=== PATIENT | male | born 1935 | race Caucasian/White ===

== ENCOUNTER 2017-03-02 15:45 | Outpatient (CLI) | payer MEDICARE, OTHER | END 2017-03-02 15:46 | disposition EMS.NT | LOC: EMS 15:45 | PROVIDERS: ATTEND Surgery | DX: R53.1 Weakness (principal); W18.39XA Other fall on same level, initial encounter; Y92.009 Unspecified place in unspecified non-institutional (private) residence as the place of occurrence of the external cause ==

== ENCOUNTER 2017-03-02 18:54 | Outpatient (CLI) | payer MEDICARE, OTHER | END 2017-03-02 18:55 | disposition critical access hospital (66) | LOC: EMS 18:54 | PROVIDERS: ATTEND Surgery | DX: R52 Pain, unspecified (principal); S09.93XA Unspecified injury of face, initial encounter; R11.0 Nausea; W18.12XA Fall from or off toilet with subsequent striking against object, initial encounter; Y92.002 Bathroom of unspecified non-institutional (private) residence as the place of occurrence of the external cause | CPT/HCPCS: A0425; A0429 ==

== ENCOUNTER 2017-03-02 19:08 | Inpatient (IN) | payer MEDICARE, OTHER ==
[2017-03-02 20:21] LABS: BASOPHILS # (AUTO) 0.1 10^3/uL (0.0-0.1); BASOPHILS % (AUTO) 0.4 %; EOSINOPHILS # (AUTO) 0.1 10^3/uL (0.0-0.7); EOSINOPHILS % (AUTO) 0.7 %; HGB - HEMOGLOBIN 10.1 g/dL (14.0-18.0); LYMPHOCYTES # (AUTO) 0.9 10^3/uL (1.5-3.5); LYMPHOCYTES % (AUTO) 6.7 %; MEAN CORPUSCULAR HEMOGLOBIN 24.8 pg (27.0-31.0); MEAN CORPUSCULAR HGB CONC 30.9 g/dL (32.0-36.0); MEAN CORPUSCULAR VOLUME 80.4 fL (80.0-94.0); MEAN PLATELET VOLUME 8.5 fL (7.4-11.4); MONOCYTES # (AUTO) 1.4 10^3/uL (0.0-1.0); MONOCYTES % (AUTO) 10.2 %; NEUTROPHILS # (AUTO) 11.6 10^3/uL (1.5-6.6); PLT - PLATELET COUNT 307 10^3/uL (130-450); RED BLOOD COUNT 4.09 10^6/uL (4.70-6.10); RED CELL DISTRIBUTION WIDTH 17.3 % (12.0-15.0); WHITE BLOOD COUNT 14.1 x10^3/uL (4.8-10.8)
[2017-03-02 20:39] LABS: ALBUMIN 3.5 g/dL (3.2-5.5); ALBUMIN/GLOBULIN RATIO 0.9 (1.0-2.2); BILIRUBIN,TOTAL 1.3 mg/dL (0.2-1.0); CALCIUM 9.1 mg/dL (8.5-10.3); CREATININE 3.1 mg/dL (0.6-1.2); TOTAL PROTEIN 7.5 g/dL (6.7-8.2)
[2017-03-02] MEDS ORDERED: ALBUTEROL NEB 2.5 MG/3 ML INH STA (20:41)
[2017-03-02] MEDS ORDERED: CALCIUM GLUCONATE 1000 MG/10 ML VIAL IVP STA (20:41)
--- NOTE | 2017-03-02 22:01 | ED Physician Documentation ---
History of Present Illness - Stated complaint Stated Complaint: GLF - INCREASINS WEAKNESS - Chief complaint Chief Complaint: General - History obtained from History obtained from: Patient, Family - History of Present Illness Timing: Chronic - Additonal information Additional information: Patient is an 82 year old male with diastolic heart failure, diffuse edema, acute on chronic kidney disease who is presenting to the emergency department for generalized weakness and fall. According to family, patient and previous notes patient was recently admitted for worsening kidney disease and anisarca, patient had been sent to rehab in [place] but patient signed himself out against medical advice. The states that today he was going to the bathroom and when he tried to get up he fell forward hitting his head. his states that he can barely walk and she cannot take care of him at home. Review of Systems Constitutional: denies: Fever, Chills Eyes: reports: Reviewed and negative Ears: reports: Reviewed and negative Nose: reports: Reviewed and negative Throat: reports: Reviewed and negative Cardiac: reports: Pedal edema Respiratory: reports: Dyspnea. denies: Wheezing GI: denies: Nausea, Vomiting : reports: Other (scrotal swelling) Skin: reports: Rash, Lesions Musculoskeletal: reports: Extremity swelling, Joint swelling Neurologic: reports: Generalized weakness, Head injury. denies: Focal weakness , Numbness, Difficulty speaking Psychiatric: denies: Depressed, Suicidal Immunocompromised: denies: Immunocompromised PD PAST MEDICAL HISTORY - Past Medical History Cardiovascular: Congestive heart failure, Hypertension, Coronary artery disease , Atrial fibrillation Respiratory: None Neuro: Peripheral neuropathy Endocrine/Autoimmune: Type 2 diabetes GI: GERD : Nocturia, Frequency, Other Psych: Depression Musculoskeletal: Osteoarthritis, Other Derm: Other - Past Surgical History Past Surgical History: Yes Cardiovascular: CABG, Coronary stent - Present Medications Home Medications: Ambulatory Orders Medication Instructions Recorded Confirmed Omeprazole 20 mg PO QDAC 11/01/14 03/02/17 Aspirin [Aspir-Low] 81 mg PO DAILY 06/19/15 03/02/17 Fluoxetine HCl 40 mg PO DAILY #0 03/01/17 03/02/17 Insulin Glargine [Lantus Solostar] 50 units SUBQ QPM #0 03/01/17 03/01/17 Isosorbide Mononitrate [Isosorbide 1 tab PO DAILY 03/01/17 03/02/17 Mononitrate ER] Metoprolol Succinate [Toprol Xl] 50 mg PO DAILY 03/01/17 03/02/17 Spironolactone 25 mg PO BID #30 tablet 03/01/17 03/02/17 Torsemide 20 mg PO BID 03/01/17 03/02/17 hydrALAZINE [Apresoline] 25 mg PO TID #0 03/01/17 03/02/17 metFORMIN [Glucophage] 500 mg PO ONCE 03/01/17 03/02/17 Insulin Glargine [Lantus Solostar] 75 unit SUBQ QPM 03/02/17 03/02/17 - Allergies Allergies/Adverse Reactions: Allergies Allergy/AdvReac Type Severity Reaction Status Date / Time No Known Drug Allergies Allergy Verified 03/02/17 19:15 - Social History Does the pt smoke?: No Smoking Status: Never smoker Does the pt drink ETOH?: Yes Does the pt have substance abuse?: No - Immunizations Immunizations are current?: Yes - POLST Patient has POLST: No POLST Status: DNR PD ED PE NORMAL - Neuro Neuro: Alert and oriented X 3, No motor deficit, No sensory deficit, Normal speech Eye Opening: Spontaneous Motor: Obeys Commands Verbal: Oriented GCS Score: 15 PD ED PE EXPANDED - General General: Other (diffuse anasarca) - HEENT HEENT: Head injury (minimal dried blood around patient's mouth) - Cardiac Cardiac: Irregularly irregular - Abdomen Abdomen: Other (plus 3 pitting edema) - Derm Derm: Rash (erythema of bilateral lower extremities) - Extremities Extremities: Pedal edema bilateral Results - Vitals Vitals: Vital Signs - 24 hr 03/02/17 03/02/17 03/02/17 19:10 20:30 21:32 Temperature 36.1 C L Heart Rate 60 65 68 Respiratory 18 20 22 Rate Blood Pressure 157/68 H 128/81 H O2 Saturation 94 94 Oxygen O2 Source [Without Activity] Nasal cannula O2 Source [With Activity] Room air O2 Source Nasal cannula Oxygen Flow Rate 2 - EKG (time done) 1915 Rate: Rate (enter#) (63) Rhythm: Atrial fibrillation Seymour: Normal Intervals: Normal WA QRS: Normal Ischemia: Normal ST segments Compare to prior EKG: Unchanged from prior EKG - Labs Labs: Laboratory Tests 03/02/17 03/02/17 03/02/17 20:12 20:12 20:12 WBC 14.1 H RBC 4.09 L Hgb 10.1 L Hct 32.9 L MCV 80.4 MCH 24.8 L MCHC 30.9 L RDW 17.3 H Plt Count 307 MPV 8.5 Neut # 11.6 H Lymph # 0.9 L Candler # 1.4 H Eos # 0.1 Baso # 0.1 Absolute Nucleated RBC 0.01 Nucleated RBC % 0.0 Sodium 127 L Potassium 5.3 H Chloride 90 L Carbon Dioxide 19 L Anion Gap 18.0 H BUN 66 H Creatinine 3.1 H Estimated GFR (MDRD) 19 L Glucose 220 H Calcium 9.1 Magnesium 1.7 Total Bilirubin 1.3 H AST 34 ALT 18 Alkaline Phosphatase 103 Total Protein 7.5 Albumin 3.5 Globulin 4.0 Albumin/Globulin Ratio 0.9 L Lipase 14 L - Rads (name of study) ct head Radiology: Final report received (no acute abnormality) PD MEDICAL DECISION MAKING - ED course Complexity details: reviewed old records, reviewed results, re-evaluated patient , considered differential, d/w patient, d/w family, d/w retail wireless sales consultant ED course: Patient was seen and examined at bedside. labs were drawn and imaging was ordered. When patient's labs came back he was found to be hyperkalemic but no ekg changes. patient was treated with calcium and albuterol. Patient's head CT showed no acute changed but patient had multiple lab abnormalities. Patient required observation for correction of elecctrolyte abnormalities and further care. Case was discussed with hospitalist who agreed to observation. Departure - Departure Disposition: ED Place in Observation Clinical Impression: Anasarca, Acute on chronic right heart failure, Acute on chronic renal insufficiency, Hyperkalemia Condition: Stable Discharge Date/Time: 03/02/17 23:02
--- NOTE | 2017-03-02 22:09 | CT Preliminary Report ---
Exam: CT HEAD W/O IMPRESSION: Generalized age-related cortical atrophic changes without evidence of acute intracranial abnormality. [facility] SITE ID: [id number]
--- NOTE | 2017-03-02 22:20 | CT Report ---
EXAM: CT HEAD EXAM DATE: 03/02/2017 09:02 PM. CLINICAL HISTORY: Facial pain, fall. COMPARISON: Brain CT from 02/26/2017. TECHNIQUE: Multiaxial CT images were obtained from the foramen magnum to the vertex. Reformats: Coron al. IV contrast: None. In accordance with CT protocol optimization, one or more of the following dose reduction techniques w ere utilized for this exam: automated exposure control, adjustment of mA and/or KV based on patient s ize, or use of iterative reconstructive technique. FINDINGS: Parenchyma: No intraparenchymal hemorrhage. No evidence of mass, midline shift, or CT findings of acu te infarction. Nixon-white differentiation is distinct. No diffuse chronic microangiopathic white miguel er changes are evident. Extraaxial Spaces: Normal for age. No subdural or epidural collections identified. Ventricles: The ventricles and cortical sulci are moderately enlarged, consistent with age-related ti ssue loss. Sinuses and orbits: Postsurgical changes from cataract extractions are noted in the globes. The paran sara and mastoid sinuses are nonopacified. Bones: No evidence of fracture or calvarial defect. Other: Mild intracranial atherosclerosis is noted. IMPRESSION: Generalized age-related cortical atrophic changes without evidence of acute intracranial abnormality. [facility] Referring Provider Line: [phone] SITE ID: [id number]
[2017-03-02] MEDS ORDERED: ZOLPIDEM 5 MG TABLET PO PRN (22:30)
[2017-03-02 22:49] LABS: BILIRUBIN,URINE NEGATIVE (NEGATIVE); GLUCOSE, URINE (UA) NEGATIVE (NEGATIVE); KETONES,URINE (UA) NEGATIVE (NEGATIVE); LEUKOCYTE ESTERASE, URINE MODERATE (NEGATIVE); NITRITE,URINE POSITIVE (NEGATIVE); OCCULT BLOOD,URINE MODERATE (NEGATIVE); PROTEIN,URINE 100 mg/dL (NEGATIVE); UROBILINOGEN,URINE 0.2 (NORMAL) E.U./dL (NORMAL)
[2017-03-02 22:58] LABS: BACTERIA,URINE Moderate /HPF (None Seen); CLARITY,URINE CLOUDY (CLEAR); RBC,URINE TNTC /HPF (0-5); SQUAMOUS EPITHELIAL CELL,UR FEW Squamous (<= Few)
[2017-03-02] MEDS ORDERED: metFORMIN 500 MG TABLET PO SCH (23:00)
[2017-03-03] MEDS ORDERED: INSULIN GLARGINE 300 UNIT/3 ML PEN SUBQ ONE (00:45)
[2017-03-03] MEDS: TEMAZEPAM 7.5 MG CAPSULE PO PRN ×2 (00:54→20:35)
[2017-03-03] MEDS: SODIUM CHLORIDE FLUSH 0.9% 10 ML SYRINGE IVP PRN ×2 (03:54→22:32)
[2017-03-03] MEDS ORDERED: LORazepam 2 MG/ML VIAL IVP SCH (04:00)
[2017-03-03 07:40] LABS: CALCIUM 8.9 mg/dL (8.5-10.3); CREATININE 3.3 mg/dL (0.6-1.2); MAGNESIUM 1.6 mg/dL (1.7-2.8)
[2017-03-03] MEDS: hydrALAZINE 25 MG TABLET PO SCH ×2 (07:48→13:20)
[2017-03-03] MEDS: SODIUM CHLORIDE FLUSH 0.9% 10 ML SYRINGE IVP SCH ×3 (07:48→22:18)
[2017-03-03] MEDS ORDERED: FLUoxetine 10 MG CAPSULE PO SCH (09:00)
[2017-03-03] MEDS ORDERED: METOPROLOL SUCCINATE 50 MG TABLET PO SCH ×2 (09:00)
[2017-03-03] MEDS ORDERED: FAMOTIDINE 20 MG TABLET PO SCH (09:00)
--- NOTE | 2017-03-03 09:01 | CT Report ---
DATE OF SERVICE: 03/02/2017 CT FACIAL BONES WITHOUT CONTRAST: 03/02/2017 CLINICAL INDICATION: Fall TECHNIQUE: Axial CT images of the facial bones were obtained without contrast, following which, sagittal and coronal reconstructions were performed. In accordance with CT protocol optimization, one or more of the following dose reduction techniques were utilized for this exam: Automated exposure control, adjustment of mA and/or KV based on patient size, or use of iterative reconstructive technique. FINDINGS: Image quality is degraded by patient motion. There is no evidence of displaced fracture. The visualized orbital contents are unremarkable. The paranasal sinuses are clear. The ostiomeatal units are patent. There are degenerative changes in the temporomandibular joints, left worse than right. IMPRESSION: No evidence of facial bone fracture. TD: 03/03/2017 10:00
[2017-03-03] MEDS: ASPIRIN EC 81 MG TABLET PO SCH (09:02)
[2017-03-03] MEDS: POLYETHYLENE GLYCOL 3350 17 GM PACKET PO SCH (09:04)
[2017-03-03] MEDS: SPIRONOLACTONE 25 MG TABLET PO SCH ×2 (09:04→20:35)
[2017-03-03] MEDS: TORSEMIDE 20 MG TABLET PO SCH ×2 (09:04→20:39)
[2017-03-03] MEDS ORDERED: CETIRIZINE 10 MG TABLET PO PRN (10:47)
[2017-03-03] MEDS: NITROFURANTOIN MACRO 100 MG CAPSULE PO SCH ×2 (12:10→20:35)
--- NOTE | 2017-03-03 19:05 | PROVIDER PROGRESS NOTE ---
Subjective - Prog Note Date Prog Note Date: 03/03/17 Prog Note Time: 19:03 - Subjective Pt reports feeling: No change (Pt continues to have analtered mental status) Objective - Vital Signs/Intake & Output Reviewed Vital Signs: Yes - Objective General Appearance: positive: Mild distress, Lethargic Eyes Bilateral: positive: Normal inspection, EOMI, No lid inflammation, Conjunctivae nml ENT: positive: ENT inspection nml, Pharynx nml, No signs of dehydration Neck: positive: Nml inspection, Thyroid nml, No JVD, Trachea midline. negative : Thyromegaly Respiratory: positive: Chest non-tender, No respiratory distress, Breath sounds nml. negative: Wheezes, Rales, Rhonchi Cardiovascular: positive: Regular rate & rhythm, No murmur, No gallop Abdomen: positive: Non-tender, No organomegaly, Nml bowel sounds, No distention. negative: Guarding, Rebound Back: positive: Nml inspection. negative: CVA tenderness (R), CVA tenderness (L ) Skin: positive: Color nml, No rash, Warm, Dry. negative: Cyanosis Extremities: positive: Non-tender, Full ROM, Nml appearance Neurologic/Psychiatric: positive: Disoriented to person, Disoriented to place, Disoriented to time. negative: Facial droop, Slurred/abnml speech - Lab Results Fish Bones: 03/02/17 20:12 03/03/17 07:25 Assessment/Plan - Problem List (1) Acute on chronic right heart failure Impression: The patient is in a difficult position as he is fluid overloaded with a BNP of 1569 today yet also has acute on chronic renal insufficiency with a creatinine of 3.3. We have no choice but to try to remove the fluid gently with as little damage to his kidneys as can be managed, and may need to consider dialysis as another alternative for diuresis as well. Will reassess in the morning when the new labs come out. I had a lengthy conversation with the patient's who agrees with this plan. (2) Acute on chronic renal insufficiency Impression: As noted above, we will try to diurese the patient as gently as possible. (3) Diabetes Impression: Continue with the current medication regimen. (4) Hyponatremia Impression: We will try to correct with fluid restriction. Will monitor daily.
[2017-03-03] MEDS ORDERED: ZINC OXIDE 20% OINT 28.35 GM TUBE TOP ONE (19:20)
[2017-03-03] MEDS: ZINC OXIDE 20% OINT 28.35 GM TUBE TOP PRN (20:03)
[2017-03-03] MEDS: INSULIN ASPART 300 UNIT/3 ML PEN SUBQ SCH (20:35)
[2017-03-03] MEDS ORDERED: INSULIN ASPART 300 UNIT/3 ML PEN SUBQ ONE (20:35)
[2017-03-03 20:47] LABS: HB2 TOTAL 10.9 g/dL; HEMOGLOBIN A1C 0.83 g/dL; HEMOGLOBIN A1C % 9.1 % (4.6-6.2)
[2017-03-03] MEDS ORDERED: INSULIN GLARGINE 300 UNIT/3 ML PEN SUBQ SCH ×3 (21:00)
[2017-03-03] MEDS ORDERED: MORPHINE 2 MG/ML SYRINGE IVP PRN (22:10)
[2017-03-03] MEDS ORDERED: hydrALAZINE 25 MG TABLET PO SCH (22:11)
[2017-03-03] MEDS: BUMETANIDE 1 MG/4 ML VIAL IVP SCH (22:30)
--- NOTE | 2017-03-03 23:24 | XRAY Report ---
EXAM: CHEST RADIOGRAPHY EXAM DATE: 03/03/2017 10:24 PM. CLINICAL HISTORY: Shortness of breath COMPARISON: 02/25/2017, 02/21/2017 TECHNIQUE: 1 view. FINDINGS: Lungs/Pleura: Small lung volumes. Diffuse pulmonary vascular congestion and septal thickening. Suspec maranda trace pleural effusions. No definite pneumothorax. Mediastinum: Moderate enlargement of the cardiac silhouette. Other: Prior median sternotomy. IMPRESSION: Moderate CHF pattern. [facility] Referring Provider Line: [phone] SITE ID: [id number]
[2017-03-04] MEDS: OLANZapine 10 MG VIAL IM PRN ×2 (00:28→17:45)
[2017-03-04 05:47] LABS: VBG PCO2 31.2 mmHg (41-51); VBG PH 7.399 (7.31-7.41); VBG PO2 218.9 mmHg (25-47); VBG TOTAL CO2 19.8 mmol/L (24-29)
[2017-03-04 05:48] LABS: BASOPHILS % (AUTO) 0.2 %; EOSINOPHILS % (AUTO) 0.4 %; HGB - HEMOGLOBIN 10.6 g/dL (14.0-18.0); LYMPHOCYTES % (AUTO) 5.1 %; MEAN CORPUSCULAR HGB CONC 31.1 g/dL (32.0-36.0); MEAN CORPUSCULAR VOLUME 80.3 fL (80.0-94.0); MEAN PLATELET VOLUME 8.9 fL (7.4-11.4); MONOCYTES % (AUTO) 6.1 %; NEUTROPHILS % (AUTO) 88.2 %; PLT - PLATELET COUNT 263 10^3/uL (130-450); RED BLOOD COUNT 4.25 10^6/uL (4.70-6.10); RED CELL DISTRIBUTION WIDTH 17.6 % (12.0-15.0); WHITE BLOOD COUNT 29.5 x10^3/uL (4.8-10.8)
[2017-03-04 05:58] LABS: ABNORMAL LYMPHS % (MANUAL) 0 %
[2017-03-04 06:01] LABS: CALCIUM 9.1 mg/dL (8.5-10.3); CREATININE 3.7 mg/dL (0.6-1.2)
[2017-03-04] MEDS: PANTOPRAZOLE 40 MG TABLET PO SCH (06:05)
[2017-03-04 06:15] LABS: BAND NEUTROPHILS % (MANUAL) 10 %; DIFFERENTIAL COMMENT MANUAL DIFFERENTIAL; LYMPHOCYTES % (MANUAL) 10 %; MONOCYTES # (MANUAL) 2.7 10^3/uL (0.0-1.0); NEUTROPHILS # (MANUAL) 23.9 10^3/uL (1.5-6.6); NEUTROPHILS % (MANUAL) 71 %; PLATELET ESTIMATE, MANUAL NORMAL (130-450,000) (NORMAL); RBC MORPHOLOGY (MULTIPLE) NORMAL APPEARANCE (NORMAL)
[2017-03-04] MEDS: SODIUM CHLORIDE FLUSH 0.9% 10 ML SYRINGE IVP SCH ×3 (07:18→21:46)
[2017-03-04] MEDS: INSULIN ASPART 300 UNIT/3 ML PEN SUBQ SCH ×3 (07:57→18:26)
[2017-03-04] MEDS: POLYETHYLENE GLYCOL 3350 17 GM PACKET PO SCH (07:59)
[2017-03-04] MEDS: ASPIRIN EC 81 MG TABLET PO SCH (08:59)
[2017-03-04] MEDS: FLUoxetine 10 MG CAPSULE PO SCH (08:59)
[2017-03-04] MEDS ORDERED: METOPROLOL SUCCINATE 25 MG TABLET PO SCH (09:00)
[2017-03-04] MEDS: levoFLOXacin 750 MG/150 ML 750 MG/150 ML BAG IV SCH (09:14)
[2017-03-04] MEDS: BUMETANIDE 1 MG/4 ML VIAL IVP SCH ×2 (09:15→22:05)
[2017-03-04] MEDS: SPIRONOLACTONE 25 MG TABLET PO SCH ×2 (09:20→21:45)
--- NOTE | 2017-03-04 09:56 | HISTORY & PHYSICAL EXAMINATION ---
DATE OF SERVICE: 03/02/2017 Physician: Tri Rueda MD DATE OF ADMISSION: 03/02/2017 HISTORY OF PRESENT ILLNESS: This is an 81-year-old, white male who was just discharged from here 24 hours previously for weakness, anasarca, and renal insufficiency. He was wanting to have home health therapy for conditioning and strengthening with physical therapy, but this could not be arranged and he did agree to go to a senior living facility, where he stayed less than 24 hours, and signed himself out against medical advice and went home. At home, he had weakness and was unable to care for himself. He lives with his elderly , who is also unable to care for him. He, therefore, presented to the emergency room. The other complaint was that he had fell at home twice from weakness and stumbling. He denied any syncope or dizziness or head trauma. He did fall on his lips and anterior face both times. MEDICATIONS At the time of this admission were as adjusted from recent hospitalization and discharge: 1. Torsemide 40 mg p.o. b.i.d. 2. Spironolactone 25 mg p.o. b.i.d. 3. Omeprazole 20 mg daily. 4. Metoprolol succinate 25 mg daily. 5. Lantus 75 units subcutaneously daily in the p.m. probably. 6. Hydralazine 25 mg p.o. t.i.d. 7. Fluoxetine 20 mg p.o. daily. 8. Cetirizine 10 mg p.o. daily. 9. Aspirin 81 mg p.o. daily. Of note was that the patient was no longer getting medications such as Neurontin , Gabapentin or Ambien which were creating excessive somnolence. ALLERGIES: NONE. PAST MEDICAL HISTORY: Anasarca with chronic right-sided heart failure, history of bypass surgery with CABG, permanent atrial fibrillation, diabetes, hypertension, COPD, spinal stenosis, obesity, GERD, and recent admission for anasarca and shortness of breath. FAMILY HISTORY: No inherited diseases. SOCIAL HISTORY: 1. With patient normally living at home with his and she is his caregiver, and he himself is independent when he has the strength, but he was recently here and transferred to senior living facility for physical therapy and strengthening, but signed himself out AMA. 2. Ex-smoker, no tobacco use now. 3. Drinks no alcohol, none for 32 years. REVIEW OF SYSTEMS: A comprehensive review of systems was performed and only the positives are described as above. PHYSICAL EXAMINATION GENERAL: White male, who is in mild distress, trying to urinate and having difficulty because of anasarca, but he is not in respiratory distress. VITAL SIGNS: Blood pressure 150/80, heart rate 50, in atrial fibrillation, afebrile, respiratory rate 22, oxygen saturation 100 percent on 2 liters nasal cannula. HEENT: Unremarkable with moist oral mucosa. NECK: Shows no JVD at a semi-recumbent angle of the body. No carotid bruits. CHEST: Diffusely diminished breath sounds, but no wheezes or rales. HEART: Heart sounds are distant. No audible murmurs. ABDOMEN: Obese. I cannot rule out ascites or organomegaly. EXTREMITIES: Show 4+ edema to the thighs, including scrotal edema. NEUROLOGIC: Intact. LABORATORY DATA: Sodium 127 and at discharge it was 134; BUN is 66 and creatinine 3.1, and at discharge his BUN was 61, creatinine 2.7; glucose 200, magnesium 1.7. BNP was not done, but at discharge was 1057. White count 14.1, hemoglobin 10 which is stable for him, platelet count normal. INR 1.3. IMAGING: CT of the head was performed, which showed no acute problem and the bones were described as no fractures, but this was only the cranium being reported on. ELECTROCARDIOGRAM: Probable atrial fibrillation and poor R-wave progression. IMPRESSION 1. Weakness with 2 falls. 2. Anasarca with difficulty passing urine. A recent Mccarthy had been used, but he does not want this now. 3. Chronic atrial fibrillation with good rate control. 4. Diabetes, on insulin. 5. Acute on chronic renal insufficiency. PLAN: Place the patient in observation to adjust medications further, plus also to determine the best location for him to receive physical therapy or home health/home nursing since the cannot be a caregiver because of her own frailty. Obtain orthostatic vital signs to determine if this is why he is falling or feeling weak. Continue with his current doses of his beta jensen, loop diuretic, and spironolactone. No increases are ordered, as he currently continues to need diuresis from the anasarca, but has worsening of his renal insufficiency. Continue to follow his electrolytes, BUN and creatinine daily. Continue his diabetic management. Social work consult for best management for PT. The does want him to go to a senior living facility before returning home, but the patient has stated to her today several times that he does not want a senior living facility, and that is why he signed himself out AMA yesterday. ATTESTATION: The patient is expected to be discharged or transferred to another facility within in 96 hours: Yes. DEEP VENOUS THROMBOSIS PROPHYLAXIS: SCDs. No anticoagulants because of the recent frequent falls. CODE STATUS: FULL CODE. TD: 03/03/2017 05:11 [email or web address]
[2017-03-04] MEDS: MORPHINE 2 MG/ML CARPUJECT IVP PRN ×2 (11:44→18:49)
[2017-03-04] MEDS: hydrALAZINE 10 MG TABLET PO SCH ×2 (13:23→21:45)
[2017-03-04] MEDS ORDERED: MAGNESIUM SULFATE 2 GRAM 2 GM/50 ML BAG IV ONE (14:26)
--- NOTE | 2017-03-04 16:06 | PROVIDER PROGRESS NOTE ---
Subjective - Prog Note Date Prog Note Date: 03/04/17 Prog Note Time: 16:06 - Subjective Pt reports feeling: Improved (The patient is not able to say how he feels at this time however he is much less agitated today than he had been since his admission.He is not showing any signs of any pain or anxiety at this time.) Current Medications - Current Medications Current Medications: Aspirin, Bumex, Zyrtec, Prozac, Apresoline, insulin, Levaquin, morphine sulfate , zinc oxide, Zyprexa, Protonix, MiraLAX, and Aldactone Objective - Vital Signs/Intake & Output Reviewed Vital Signs: Yes Vital Signs: Vital Signs x48h Pulse BP 03/04/17 13:08 65 156/91 H Intake & Output: Intake & Output 03/01/17 03/02/17 03/03/17 03/04/17 23:59 23:59 23:59 23:59 Intake Total 120 390 Output Total 200 Balance 120 190 - Objective General Appearance: positive: No acute distress, Lethargic Eyes Bilateral: positive: Normal inspection, PERRL, EOMI, No lid inflammation, Conjunctivae nml ENT: positive: ENT inspection nml, Pharynx nml, No signs of dehydration Neck: positive: Nml inspection, Thyroid nml, No JVD, Trachea midline. negative : Thyromegaly Respiratory: positive: Chest non-tender, No respiratory distress, Breath sounds nml, Other (Lung sounds are coarse in all [place]). negative: Wheezes, Rales, Rhonchi Cardiovascular: positive: Regular rate & rhythm, No murmur, No gallop Abdomen: positive: Non-tender, No organomegaly, Nml bowel sounds, No distention. negative: Guarding, Rebound Back: positive: Nml inspection. negative: CVA tenderness (R), CVA tenderness (L ) Skin: positive: Color nml, No rash, Warm, Dry. negative: Cyanosis Extremities: positive: Non-tender, Full ROM, Nml appearance Neurologic/Psychiatric: positive: Depressed mood/affect (The patient is being given Zyprexa for his agitation it appears to be very effective.) - Lab Results Fish Bones: 03/04/17 05:34 03/04/17 05:34 Other Labs: Lab Results x24hrs 03/04/17 03/04/17 03/04/17 Range/Units 11:34 07:37 05:34 WBC 29.5 H (4.8-10.8) x10^3/uL RBC 4.25 L (4.70-6.10) 10^6/uL Hgb 10.6 L (14.0-18.0) g/dL Hct 34.1 L (42.0-52.0) % MCV 80.3 (80.0-94.0) fL MCH 25.0 L (27.0-31.0) pg MCHC 31.1 L (32.0-36.0) g/dL RDW 17.6 H (12.0-15.0) % Plt Count 263 (130-450) 10^3/uL MPV 8.9 (7.4-11.4) fL Neut # Not Reportable Lymph # Not Reportable Clark # Not Reportable Eos # Not Reportable Baso # Not Reportable Absolute Nucleated RBC Not Reportable Total Counted 100 Band Neuts % (Manual) 10 (0 - 10) % Abnorm Lymph % (Manual) 0 % Nucleated RBC % Not Reportable Neutrophils # (Manual) 23.9 H (1.5-6.6) 10^3/uL Lymphocytes # (Manual) 3.0 (1.5-3.5) 10^3/uL Monocytes # (Manual) 2.7 H (0.0-1.0) 10^3/uL Eosinophils # (Manual) 0.0 (0-0.7) 10^3/uL Basophils # (Manual) 0.0 (0-0.1) 10^3/uL Differential Comment MANUAL DIFFERENTIAL Platelet Estimate NORMAL (130-450,000) (NORMAL) RBC Morph Micro Appear NORMAL APPEARANCE (NORMAL) VBG pH (7.31-7.41) VBG pCO2 (41-51) mmHg VBG pO2 (25-47) mmHg VBG HCO3 (23-28) mmol/L VBG Total CO2 (24-29) mmol/L VBG O2 Saturation (60-80) % VBG Base Excess (-2 - +2) mmol/L Sodium (135-145) mmol/L Potassium (3.5-5.0) mmol/L Chloride (101-111) mmol/L Carbon Dioxide (21-32) mmol/L Anion Gap (6-13) BUN (6-20) mg/dL Creatinine (0.6-1.2) mg/dL Estimated GFR (MDRD) (>89) Glucose (70-100) mg/dL POC Whole Bld Glucose 164 H 87 (70 - 100) mg/dL Calcium (8.5-10.3) mg/dL B-Natriuretic Peptide (5-100) pg/mL 03/04/17 03/04/17 03/04/17 Range/Units 05:34 05:34 05:34 WBC (4.8-10.8) x10^3/uL RBC (4.70-6.10) 10^6/uL Hgb (14.0-18.0) g/dL Hct (42.0-52.0) % MCV (80.0-94.0) fL MCH (27.0-31.0) pg MCHC (32.0-36.0) g/dL RDW (12.0-15.0) % Plt Count (130-450) 10^3/uL MPV (7.4-11.4) fL Neut # Lymph # Clark # Eos # Baso # Absolute Nucleated RBC Total Counted Band Neuts % (Manual) (0 - 10) % Abnorm Lymph % (Manual) % Nucleated RBC % Neutrophils # (Manual) (1.5-6.6) 10^3/uL Lymphocytes # (Manual) (1.5-3.5) 10^3/uL Monocytes # (Manual) (0.0-1.0) 10^3/uL Eosinophils # (Manual) (0-0.7) 10^3/uL Basophils # (Manual) (0-0.1) 10^3/uL Differential Comment Platelet Estimate (NORMAL) RBC Morph Micro Appear (NORMAL) VBG pH 7.399 (7.31-7.41) VBG pCO2 31.2 L (41-51) mmHg VBG pO2 218.9 H (25-47) mmHg VBG HCO3 18.8 L (23-28) mmol/L VBG Total CO2 19.8 L (24-29) mmol/L VBG O2 Saturation 99.3 H (60-80) % VBG Base Excess -5.0 L (-2 - +2) mmol/L Sodium 132 L (135-145) mmol/L Potassium 4.9 (3.5-5.0) mmol/L Chloride 96 L (101-111) mmol/L Carbon Dioxide 21 (21-32) mmol/L Anion Gap 15.0 H (6-13) BUN 84 H* (6-20) mg/dL Creatinine 3.7 H (0.6-1.2) mg/dL Estimated GFR (MDRD) 16 L (>89) Glucose 94 (70-100) mg/dL POC Whole Bld Glucose (70 - 100) mg/dL Calcium 9.1 (8.5-10.3) mg/dL B-Natriuretic Peptide 2788 H (5-100) pg/mL 03/03/17 Range/Units 20:12 WBC (4.8-10.8) x10^3/uL RBC (4.70-6.10) 10^6/uL Hgb (14.0-18.0) g/dL Hct (42.0-52.0) % MCV (80.0-94.0) fL MCH (27.0-31.0) pg MCHC (32.0-36.0) g/dL RDW (12.0-15.0) % Plt Count (130-450) 10^3/uL MPV (7.4-11.4) fL Neut # Lymph # Clark # Eos # Baso # Absolute Nucleated RBC Total Counted Band Neuts % (Manual) (0 - 10) % Abnorm Lymph % (Manual) % Nucleated RBC % Neutrophils # (Manual) (1.5-6.6) 10^3/uL Lymphocytes # (Manual) (1.5-3.5) 10^3/uL Monocytes # (Manual) (0.0-1.0) 10^3/uL Eosinophils # (Manual) (0-0.7) 10^3/uL Basophils # (Manual) (0-0.1) 10^3/uL Differential Comment Platelet Estimate (NORMAL) RBC Morph Micro Appear (NORMAL) VBG pH (7.31-7.41) VBG pCO2 (41-51) mmHg VBG pO2 (25-47) mmHg VBG HCO3 (23-28) mmol/L VBG Total CO2 (24-29) mmol/L VBG O2 Saturation (60-80) % VBG Base Excess (-2 - +2) mmol/L Sodium (135-145) mmol/L Potassium (3.5-5.0) mmol/L Chloride (101-111) mmol/L Carbon Dioxide (21-32) mmol/L Anion Gap (6-13) BUN (6-20) mg/dL Creatinine (0.6-1.2) mg/dL Estimated GFR (MDRD) (>89) Glucose (70-100) mg/dL POC Whole Bld Glucose 155 H (70 - 100) mg/dL Calcium (8.5-10.3) mg/dL B-Natriuretic Peptide (5-100) pg/mL Assessment/Plan - Problem List (1) Acute on chronic right heart failure Impression: The patient BNP continues to rise going from 1569 04/13/1987 today. Chest x-ray shows moderate congestive heart failure. We are continuing to try to diurese him using IV Bumex and his creatinine continues to rise. He appears to be more comfortable today and is not showing any signs of any pain or agitation at this time. (2) Acute on chronic renal insufficiency Impression: The patient's creatinine continues to rise and is now 3.7 today. His BUN has also risen but this is not unexpected as we are trying to remove the fluid excess. (3) Diabetes Impression: Well-managed, continue current medication regimen. Qualifiers: Diabetes mellitus type: type 1 (4) Hyponatremia Impression: Slowly improving, sodium level today was 132 which is up from 129 on admission.
[2017-03-04] MEDS ORDERED: WATER FOR INJECTION,STERILE 10 ML ONE (17:35)
[2017-03-04] MEDS: LORazepam 2 MG/ML VIAL IVP PRN (22:05)
[2017-03-04] MEDS: INSULIN GLARGINE 300 UNIT/3 ML PEN SUBQ SCH (22:07)
[2017-03-05] MEDS: SODIUM CHLORIDE FLUSH 0.9% 10 ML SYRINGE IVP SCH ×3 (06:57→21:40)
[2017-03-05] MEDS: hydrALAZINE 10 MG TABLET PO SCH ×3 (06:57→21:31)
[2017-03-05] MEDS: PANTOPRAZOLE 40 MG TABLET PO SCH (06:57)
[2017-03-05 07:40] LABS: CALCIUM 8.7 mg/dL (8.5-10.3); CREATININE 3.6 mg/dL (0.6-1.2)
[2017-03-05] MEDS: SODIUM CHLORIDE FLUSH 0.9% 10 ML SYRINGE IVP PRN ×2 (08:11→09:28)
[2017-03-05] MEDS: MORPHINE 2 MG/ML CARPUJECT IVP PRN ×4 (08:11→23:03)
[2017-03-05 08:25] LABS: HGB - HEMOGLOBIN 11.1 g/dL (14.0-18.0); MEAN CORPUSCULAR HEMOGLOBIN 25.5 pg (27.0-31.0); MEAN CORPUSCULAR HGB CONC 31.9 g/dL (32.0-36.0); MEAN PLATELET VOLUME 8.3 fL (7.4-11.4); RED BLOOD COUNT 4.34 10^6/uL (4.70-6.10); RED CELL DISTRIBUTION WIDTH 17.4 % (12.0-15.0); WHITE BLOOD COUNT 17.9 x10^3/uL (4.8-10.8)
[2017-03-05] MEDS: FLUoxetine 10 MG CAPSULE PO SCH (09:27)
[2017-03-05] MEDS: ASPIRIN EC 81 MG TABLET PO SCH (09:28)
[2017-03-05] MEDS: BUMETANIDE 1 MG/4 ML VIAL IVP SCH ×2 (09:28→21:30)
[2017-03-05] MEDS: SPIRONOLACTONE 25 MG TABLET PO SCH ×2 (09:28→21:31)
[2017-03-05] MEDS: POLYETHYLENE GLYCOL 3350 17 GM PACKET PO SCH (09:29)
--- NOTE | 2017-03-05 12:56 | PROVIDER PROGRESS NOTE ---
Subjective - Prog Note Date Prog Note Date: 03/05/17 Prog Note Time: 12:54 - Subjective Pt reports feeling: No change Subjective: The patient is less agitated today but is still quite confused. Current Medications - Current Medications Current Medications: Aspirin, Bumex, Zyrtec, Prozac, Apresoline, insulin, Levaquin, morphine sulfate , zinc oxide, Zyprexa, Protonix, MiraLAX, and Aldactone Objective - Vital Signs/Intake & Output Reviewed Vital Signs: Yes Vital Signs: Vital Signs x48h Temp Pulse Resp BP Pulse Ox 03/05/17 08:17 36.4 C L 69 18 166/75 H 94 Intake & Output: Intake & Output 03/02/17 03/03/17 03/04/17 03/05/17 23:59 23:59 23:59 23:59 Intake Total 120 440 440 Output Total 200 150 Balance 120 240 290 - Objective General Appearance: positive: No acute distress, Alert Eyes Bilateral: positive: Normal inspection, PERRL, EOMI, No lid inflammation, Conjunctivae nml, No scleral icterus ENT: positive: ENT inspection nml, Pharynx nml, No signs of dehydration. negative: Purulent nasal drainage Neck: positive: Nml inspection, Thyroid nml, No JVD, Trachea midline. negative : Thyromegaly Respiratory: positive: Chest non-tender, No respiratory distress, Breath sounds nml, Other (Coarse sounds all [place]). negative: Wheezes, Rales, Rhonchi Cardiovascular: positive: Regular rate & rhythm, No murmur, No gallop. negative : Tachycardia Abdomen: positive: Non-tender, No organomegaly, Nml bowel sounds, No distention. negative: Guarding, Rebound Back: positive: Nml inspection. negative: CVA tenderness (R), CVA tenderness (L ) Skin: positive: Color nml, No rash, Warm, Dry. negative: Cyanosis Extremities: positive: Non-tender, Full ROM, Nml appearance, Pedal edema Neurologic/Psychiatric: positive: Motor nml, Sensation nml, Disoriented to place , Disoriented to time, Weakness. negative: Facial droop, Slurred/abnml speech - Lab Results Fish Bones: 03/05/17 08:22 03/05/17 06:55 Other Labs: Lab Results x24hrs 03/05/17 03/05/17 03/05/17 Range/Units 11:57 08:22 07:44 WBC 17.9 H (4.8-10.8) x10^3/uL RBC 4.34 L (4.70-6.10) 10^6/uL Hgb 11.1 L (14.0-18.0) g/dL Hct 34.8 L (42.0-52.0) % MCV 80.0 (80.0-94.0) fL MCH 25.5 L (27.0-31.0) pg MCHC 31.9 L (32.0-36.0) g/dL RDW 17.4 H (12.0-15.0) % Plt Count 242 (130-450) 10^3/uL MPV 8.3 (7.4-11.4) fL Sodium (135-145) mmol/L Potassium (3.5-5.0) mmol/L Chloride (101-111) mmol/L Carbon Dioxide (21-32) mmol/L Anion Gap (6-13) BUN (6-20) mg/dL Creatinine (0.6-1.2) mg/dL Estimated GFR (MDRD) (>89) Glucose (70-100) mg/dL POC Whole Bld Glucose 230 H 123 H (70 - 100) mg/dL Calcium (8.5-10.3) mg/dL B-Natriuretic Peptide (5-100) pg/mL 03/05/17 03/05/17 03/04/17 Range/Units 06:55 06:55 20:17 WBC (4.8-10.8) x10^3/uL RBC (4.70-6.10) 10^6/uL Hgb (14.0-18.0) g/dL Hct (42.0-52.0) % MCV (80.0-94.0) fL MCH (27.0-31.0) pg MCHC (32.0-36.0) g/dL RDW (12.0-15.0) % Plt Count (130-450) 10^3/uL MPV (7.4-11.4) fL Sodium 133 L (135-145) mmol/L Potassium 4.5 (3.5-5.0) mmol/L Chloride 94 L (101-111) mmol/L Carbon Dioxide 22 (21-32) mmol/L Anion Gap 17.0 H (6-13) BUN 89 H* (6-20) mg/dL Creatinine 3.6 H (0.6-1.2) mg/dL Estimated GFR (MDRD) 16 L (>89) Glucose 127 H (70-100) mg/dL POC Whole Bld Glucose 160 H (70 - 100) mg/dL Calcium 8.7 (8.5-10.3) mg/dL B-Natriuretic Peptide 1480 H (5-100) pg/mL 03/04/17 Range/Units 16:41 WBC (4.8-10.8) x10^3/uL RBC (4.70-6.10) 10^6/uL Hgb (14.0-18.0) g/dL Hct (42.0-52.0) % MCV (80.0-94.0) fL MCH (27.0-31.0) pg MCHC (32.0-36.0) g/dL RDW (12.0-15.0) % Plt Count (130-450) 10^3/uL MPV (7.4-11.4) fL Sodium (135-145) mmol/L Potassium (3.5-5.0) mmol/L Chloride (101-111) mmol/L Carbon Dioxide (21-32) mmol/L Anion Gap (6-13) BUN (6-20) mg/dL Creatinine (0.6-1.2) mg/dL Estimated GFR (MDRD) (>89) Glucose (70-100) mg/dL POC Whole Bld Glucose 172 H (70 - 100) mg/dL Calcium (8.5-10.3) mg/dL B-Natriuretic Peptide (5-100) pg/mL Assessment/Plan - Problem List (1) Acute on chronic right heart failure Impression: The patient's BNP has come down remarkably going from 2788 down to 1480 today.His BUN has increased to 87 and his creatinine has decreased to 3.6 and he appears to be less agitated today. (2) Acute on chronic renal insufficiency Impression: As noted above the creatinine has come down from 3.7-3.6 however the BUN has gone up from 84-87. The patient still appears to be fluid overloaded. We will continue to diurese the patient as gently as possible. (3) Diabetes Impression: Well-managed, continue present medication regimen. Qualifiers: Diabetes mellitus type: type 1 Diabetes mellitus complication status: without complication Qualified Code(s): E10.9 - Type 1 diabetes mellitus without complications (4) Hyponatremia Impression: The patient's sodium continues to slowly rise as result of the fluid restriction. Today it is 133.
[2017-03-05] MEDS: LORazepam 2 MG/ML VIAL IVP PRN ×2 (15:59→21:47)
[2017-03-05] MEDS: INSULIN ASPART 300 UNIT/3 ML PEN SUBQ SCH ×2 (17:18→21:34)
[2017-03-05] MEDS: INSULIN GLARGINE 300 UNIT/3 ML PEN SUBQ SCH (21:40)
[2017-03-06] MEDS: PANTOPRAZOLE 40 MG TABLET PO SCH (06:21)
[2017-03-06] MEDS: hydrALAZINE 10 MG TABLET PO SCH ×3 (06:22→19:17)
[2017-03-06] MEDS: SODIUM CHLORIDE FLUSH 0.9% 10 ML SYRINGE IVP SCH ×3 (06:22→21:19)
[2017-03-06 06:25] LABS: HGB - HEMOGLOBIN 11.3 g/dL (14.0-18.0); MEAN CORPUSCULAR HGB CONC 30.4 g/dL (32.0-36.0); MEAN CORPUSCULAR VOLUME 82.1 fL (80.0-94.0); MEAN PLATELET VOLUME 8.8 fL (7.4-11.4); RED BLOOD COUNT 4.53 10^6/uL (4.70-6.10); RED CELL DISTRIBUTION WIDTH 18.2 % (12.0-15.0); WHITE BLOOD COUNT 10.9 x10^3/uL (4.8-10.8)
[2017-03-06 07:10] LABS: CALCIUM 8.5 mg/dL (8.5-10.3); CREATININE 3.5 mg/dL (0.6-1.2); MAGNESIUM 2.1 mg/dL (1.7-2.8); PHOSPHORUS 3.7 mg/dL (2.5-4.6)
[2017-03-06] MEDS: FLUoxetine 10 MG CAPSULE PO SCH (08:36)
[2017-03-06] MEDS: ASPIRIN EC 81 MG TABLET PO SCH (08:38)
[2017-03-06] MEDS: SPIRONOLACTONE 25 MG TABLET PO SCH ×2 (08:38→19:17)
[2017-03-06] MEDS: POLYETHYLENE GLYCOL 3350 17 GM PACKET PO SCH (08:39)
[2017-03-06] MEDS: BUMETANIDE 1 MG/4 ML VIAL IVP SCH ×2 (08:43→21:19)
[2017-03-06] MEDS: levoFLOXacin 750 MG/150 ML 750 MG/150 ML BAG IV SCH (08:47)
[2017-03-06] MEDS: INSULIN ASPART 300 UNIT/3 ML PEN SUBQ SCH ×4 (08:59→21:23)
[2017-03-06] MEDS: SODIUM CHLORIDE FLUSH 0.9% 10 ML SYRINGE IVP PRN ×4 (10:05→19:20)
[2017-03-06] MEDS: MORPHINE 2 MG/ML CARPUJECT IVP PRN ×4 (10:05→19:20)
[2017-03-06] MEDS: LORazepam 2 MG/ML VIAL IVP PRN ×3 (10:59→17:46)
--- NOTE | 2017-03-06 12:13 | PROVIDER PROGRESS NOTE ---
Subjective - Prog Note Date Prog Note Date: 03/06/17 Prog Note Time: 12:12 - Subjective Pt reports feeling: Improved (slightly less confusion and agitation today) Current Medications - Current Medications Current Medications: Aspirin, Bumex, Zyrtec, Prozac, Apresoline, NovoLog, Lantus, Levaquin,Ativan, morphine, zinc oxide, Zyprexa, Protonix, MiraLAX, sodium chloride, Aldactone Objective - Vital Signs/Intake & Output Reviewed Vital Signs: Yes Vital Signs: Vital Signs x48h Temp Pulse Resp BP Pulse Ox 03/06/17 07:27 37.1 C 76 22 162/87 H 98 Intake & Output: Intake & Output 03/03/17 03/04/17 03/05/17 03/06/17 23:59 23:59 23:59 23:59 Intake Total 626 495 9331 570 Output Total 200 150 Balance 431 194 3738 570 - Objective General Appearance: positive: Alert, Mild distress Eyes Bilateral: positive: Normal inspection, PERRL, EOMI, No lid inflammation, Conjunctivae nml ENT: positive: ENT inspection nml, Pharynx nml, No signs of dehydration. negative: Purulent nasal drainage Neck: positive: Nml inspection, Thyroid nml, No JVD, Trachea midline Respiratory: positive: Chest non-tender, No respiratory distress, Breath sounds nml. negative: Wheezes, Rales, Rhonchi Cardiovascular: positive: Regular rate & rhythm, No murmur, No gallop. negative : Extrasystoles Abdomen: positive: Non-tender, No organomegaly, Nml bowel sounds, No distention. negative: Guarding, Rebound Back: positive: Nml inspection. negative: CVA tenderness (R), CVA tenderness (L ) Skin: positive: Color nml, No rash, Warm, Dry. negative: Cyanosis Extremities: positive: Non-tender, Full ROM, Nml appearance. negative: No pedal edema Neurologic/Psychiatric: positive: Disoriented to person, Disoriented to place, Disoriented to time, Weakness. negative: Facial droop, Slurred/abnml speech, Depressed mood/affect - Lab Results Fish Bones: 03/06/17 06:16 03/06/17 06:16 Other Labs: Lab Results x24hrs 03/06/17 03/06/17 03/06/17 Range/Units 11:07 07:25 06:16 WBC 10.9 H (4.8-10.8) x10^3/uL RBC 4.53 L (4.70-6.10) 10^6/uL Hgb 11.3 L (14.0-18.0) g/dL Hct 37.2 L (42.0-52.0) % MCV 82.1 (80.0-94.0) fL MCH 25.0 L (27.0-31.0) pg MCHC 30.4 L (32.0-36.0) g/dL RDW 18.2 H (12.0-15.0) % Plt Count 273 (130-450) 10^3/uL MPV 8.8 (7.4-11.4) fL Sodium (135-145) mmol/L Potassium (3.5-5.0) mmol/L Chloride (101-111) mmol/L Carbon Dioxide (21-32) mmol/L Anion Gap (6-13) BUN (6-20) mg/dL Creatinine (0.6-1.2) mg/dL Estimated GFR (MDRD) (>89) Glucose (70-100) mg/dL POC Whole Bld Glucose 190 H 152 H (70 - 100) mg/dL Calcium (8.5-10.3) mg/dL Phosphorus (2.5-4.6) mg/dL Magnesium (1.7-2.8) mg/dL B-Natriuretic Peptide (5-100) pg/mL 03/06/17 03/06/17 03/05/17 Range/Units 06:16 06:16 20:57 WBC (4.8-10.8) x10^3/uL RBC (4.70-6.10) 10^6/uL Hgb (14.0-18.0) g/dL Hct (42.0-52.0) % MCV (80.0-94.0) fL MCH (27.0-31.0) pg MCHC (32.0-36.0) g/dL RDW (12.0-15.0) % Plt Count (130-450) 10^3/uL MPV (7.4-11.4) fL Sodium 134 L (135-145) mmol/L Potassium 4.3 (3.5-5.0) mmol/L Chloride 97 L (101-111) mmol/L Carbon Dioxide 24 (21-32) mmol/L Anion Gap 13.0 (6-13) BUN 87 H* (6-20) mg/dL Creatinine 3.5 H (0.6-1.2) mg/dL Estimated GFR (MDRD) 17 L (>89) Glucose 150 H (70-100) mg/dL POC Whole Bld Glucose 338 H (70 - 100) mg/dL Calcium 8.5 (8.5-10.3) mg/dL Phosphorus 3.7 (2.5-4.6) mg/dL Magnesium 2.1 (1.7-2.8) mg/dL B-Natriuretic Peptide 1341 H (5-100) pg/mL 03/05/17 Range/Units 16:52 WBC (4.8-10.8) x10^3/uL RBC (4.70-6.10) 10^6/uL Hgb (14.0-18.0) g/dL Hct (42.0-52.0) % MCV (80.0-94.0) fL MCH (27.0-31.0) pg MCHC (32.0-36.0) g/dL RDW (12.0-15.0) % Plt Count (130-450) 10^3/uL MPV (7.4-11.4) fL Sodium (135-145) mmol/L Potassium (3.5-5.0) mmol/L Chloride (101-111) mmol/L Carbon Dioxide (21-32) mmol/L Anion Gap (6-13) BUN (6-20) mg/dL Creatinine (0.6-1.2) mg/dL Estimated GFR (MDRD) (>89) Glucose (70-100) mg/dL POC Whole Bld Glucose 271 H (70 - 100) mg/dL Calcium (8.5-10.3) mg/dL Phosphorus (2.5-4.6) mg/dL Magnesium (1.7-2.8) mg/dL B-Natriuretic Peptide (5-100) pg/mL Assessment/Plan - Problem List (1) Acute on chronic right heart failure Impression: The patient continues to breathe fairly easily and his BNP continues to drop, going from 1480 yesterday down to 1341 today.Continue present care. At the time of admission it appeared it is that the patient would be only here for 96 hours or less however at this time it appears he will be here for another few days. He continues to very slowly improve. (2) Acute on chronic renal insufficiency Impression: Renal function slowly returning to baseline. Creatinine is slightly improved today and is at 3.5 and the BUN has come from 89 down to 87. (3) Diabetes Impression: Well-managed, continue present care. Qualifiers: Diabetes mellitus type: type 1 Diabetes mellitus complication status: without complication Qualified Code(s): E10.9 - Type 1 diabetes mellitus without complications (4) Hyponatremia Impression: Almost completely corrected with a sodium level of 134 today.
--- NOTE | 2017-03-06 16:55 | ADVANCE CARE PLANNING NOTE ---
Advance Care Planning - Date/Time Date: 03/06/17 Time: 16:53 - Purpose of encounter Text: I met today with the patient's and daughter to discuss prognosis, options, and advanced care planning. - Parties in attendance Parties in attendance: The patient's , the patient's daughter, and myself - Decisional capacity Decisional capacity of: The patient does not have decision-making capacity at this time and therefore his and daughter are making his decisions. - Objective/Medical story Objective/Medical Story: The patient is an 82-year-old male who has been declining steadily over the last several years with increasing confusion weakness and requirement of assistance with ADLs.He has become childlike and unable to care for himself independently. - Goals of Care Goals of care determinations: Goals of care are to help the patient remained comfortable throughout this last phase of his life, and to maximize his functional capacity.. - Plan Plan: A DO NOT RESUSCITATE form has been signed by myself and the patient's family. - Code Status Code Status: Do Not Attempt Resuscitation - Time Spent on Advance Care Planning Time spent on advance care plannin
[2017-03-06] MEDS: INSULIN GLARGINE 300 UNIT/3 ML PEN SUBQ SCH (21:27)
[2017-03-07] MEDS: INSULIN ASPART 300 UNIT/3 ML PEN SUBQ SCH ×5 (01:24→21:07)
[2017-03-07] MEDS: hydrALAZINE 10 MG TABLET PO SCH ×3 (05:20→21:04)
[2017-03-07] MEDS: PANTOPRAZOLE 40 MG TABLET PO SCH (05:20)
[2017-03-07] MEDS: SODIUM CHLORIDE FLUSH 0.9% 10 ML SYRINGE IVP SCH ×3 (05:20→22:24)
[2017-03-07] MEDS: MORPHINE 2 MG/ML CARPUJECT IVP PRN ×5 (05:52→21:04)
[2017-03-07 06:29] LABS: HGB - HEMOGLOBIN 10.8 g/dL (14.0-18.0); MEAN CORPUSCULAR HGB CONC 30.8 g/dL (32.0-36.0); MEAN CORPUSCULAR VOLUME 81.1 fL (80.0-94.0); MEAN PLATELET VOLUME 8.4 fL (7.4-11.4); RED BLOOD COUNT 4.3 10^6/uL (4.70-6.10); RED CELL DISTRIBUTION WIDTH 18.2 % (12.0-15.0); WHITE BLOOD COUNT 8.8 x10^3/uL (4.8-10.8)
[2017-03-07 06:54] LABS: CALCIUM 8.7 mg/dL (8.5-10.3); CREATININE 3.2 mg/dL (0.6-1.2)
[2017-03-07] MEDS: BUMETANIDE 1 MG/4 ML VIAL IVP SCH ×2 (08:10→21:02)
[2017-03-07] MEDS: ASPIRIN EC 81 MG TABLET PO SCH (08:10)
[2017-03-07] MEDS: POLYETHYLENE GLYCOL 3350 17 GM PACKET PO SCH (08:10)
[2017-03-07] MEDS: SPIRONOLACTONE 25 MG TABLET PO SCH ×2 (08:11→21:04)
[2017-03-07] MEDS: FLUoxetine 10 MG CAPSULE PO SCH (08:11)
[2017-03-07] MEDS: SODIUM CHLORIDE FLUSH 0.9% 10 ML SYRINGE IVP PRN (08:11)
[2017-03-07] MEDS: OLANZapine 10 MG VIAL IM PRN (17:26)
--- NOTE | 2017-03-07 17:31 | PROVIDER PROGRESS NOTE ---
Subjective - Prog Note Date Prog Note Date: 03/07/17 Prog Note Time: 17:27 - Subjective Pt reports feeling: Improved (Patient is slightly more responsive and had a meaningful conversation with his and daughter today.) Current Medications - Current Medications Current Medications: Aspirin, Bumex, Zyrtec, Prozac, a Presalin, NovoLog, Lantus, Levaquin,Aldactone , Ativan, morphine, zinc oxide, Zyprexa, Protonix, MiraLAX, normal saline Objective - Vital Signs/Intake & Output Reviewed Vital Signs: Yes Intake & Output: Intake & Output 03/04/17 03/05/17 03/06/17 03/07/17 23:59 23:59 23:59 23:59 Intake Total 440 1290 770 580 Output Total 200 150 3 Balance 240 1140 767 580 - Objective General Appearance: positive: No acute distress, Lethargic Eyes Bilateral: positive: Normal inspection, PERRL, EOMI, No lid inflammation, Conjunctivae nml, No scleral icterus ENT: positive: ENT inspection nml, Pharynx nml, No signs of dehydration. negative: Oral lesions Neck: positive: Nml inspection, Thyroid nml, No JVD, Trachea midline. negative : Thyromegaly Respiratory: positive: Chest non-tender, No respiratory distress, Breath sounds nml. negative: Wheezes, Rales, Rhonchi Cardiovascular: positive: Regular rate & rhythm, No murmur, No gallop. negative : Tachycardia Abdomen: positive: Non-tender, No organomegaly, Nml bowel sounds, No distention. negative: Tenderness Back: positive: Nml inspection. negative: CVA tenderness (R), CVA tenderness (L ) Skin: positive: Color nml, No rash, Warm, Dry. negative: Cyanosis Extremities: positive: Non-tender, Full ROM, Nml appearance, Pedal edema Neurologic/Psychiatric: positive: Motor nml, Sensation nml, Disoriented to place , Disoriented to time, Weakness - Lab Results Fish Bones: 03/07/17 06:20 03/07/17 06:20 Other Labs: Lab Results x24hrs 03/07/17 03/07/17 03/07/17 Range/Units 16:35 11:22 07:46 WBC (4.8-10.8) x10^3/uL RBC (4.70-6.10) 10^6/uL Hgb (14.0-18.0) g/dL Hct (42.0-52.0) % MCV (80.0-94.0) fL MCH (27.0-31.0) pg MCHC (32.0-36.0) g/dL RDW (12.0-15.0) % Plt Count (130-450) 10^3/uL MPV (7.4-11.4) fL Sodium (135-145) mmol/L Potassium (3.5-5.0) mmol/L Chloride (101-111) mmol/L Carbon Dioxide (21-32) mmol/L Anion Gap (6-13) BUN (6-20) mg/dL Creatinine (0.6-1.2) mg/dL Estimated GFR (MDRD) (>89) Glucose (70-100) mg/dL POC Whole Bld Glucose 179 H 196 H 151 H (70 - 100) mg/dL Calcium (8.5-10.3) mg/dL B-Natriuretic Peptide (5-100) pg/mL 03/07/17 03/07/17 03/07/17 Range/Units 06:20 06:20 06:20 WBC 8.8 (4.8-10.8) x10^3/uL RBC 4.30 L (4.70-6.10) 10^6/uL Hgb 10.8 L (14.0-18.0) g/dL Hct 34.9 L (42.0-52.0) % MCV 81.1 (80.0-94.0) fL MCH 25.0 L (27.0-31.0) pg MCHC 30.8 L (32.0-36.0) g/dL RDW 18.2 H (12.0-15.0) % Plt Count 244 (130-450) 10^3/uL MPV 8.4 (7.4-11.4) fL Sodium 134 L (135-145) mmol/L Potassium 4.6 (3.5-5.0) mmol/L Chloride 96 L (101-111) mmol/L Carbon Dioxide 24 (21-32) mmol/L Anion Gap 14.0 H (6-13) BUN 88 H* (6-20) mg/dL Creatinine 3.2 H (0.6-1.2) mg/dL Estimated GFR (MDRD) 19 L (>89) Glucose 164 H (70-100) mg/dL POC Whole Bld Glucose (70 - 100) mg/dL Calcium 8.7 (8.5-10.3) mg/dL B-Natriuretic Peptide 957 H (5-100) pg/mL 03/06/17 Range/Units 20:39 WBC (4.8-10.8) x10^3/uL RBC (4.70-6.10) 10^6/uL Hgb (14.0-18.0) g/dL Hct (42.0-52.0) % MCV (80.0-94.0) fL MCH (27.0-31.0) pg MCHC (32.0-36.0) g/dL RDW (12.0-15.0) % Plt Count (130-450) 10^3/uL MPV (7.4-11.4) fL Sodium (135-145) mmol/L Potassium (3.5-5.0) mmol/L Chloride (101-111) mmol/L Carbon Dioxide (21-32) mmol/L Anion Gap (6-13) BUN (6-20) mg/dL Creatinine (0.6-1.2) mg/dL Estimated GFR (MDRD) (>89) Glucose (70-100) mg/dL POC Whole Bld Glucose 162 H (70 - 100) mg/dL Calcium (8.5-10.3) mg/dL B-Natriuretic Peptide (5-100) pg/mL Assessment/Plan - Problem List (1) Acute on chronic right heart failure Impression: The patient slowly continues to move back towards his baseline. His BNP today is 957 which is significantly down from yesterday which was 1341 and from the peak which was 2789.We will continue to restrict fluids.I have had multiple discussions with the patient's and daughter and we have detailed advanced care planning at this point in time. (2) Acute on chronic renal insufficiency Impression: The patient's creatinine clearance is down to 3.2 from 3.6 yesterday. His BUN remains highly elevated at 88. Unfortunately he has heart failure and so we must continue to fluid restrict him at this time. (3) Acute metabolic encephalopathy Impression: The patient has been less agitated today and had a meaningful conversation with his and daughter.He remains lethargic and does have periods of agitation.
[2017-03-07] MEDS: LORazepam 2 MG/ML VIAL IVP PRN ×2 (19:07→21:02)
[2017-03-07] MEDS: INSULIN GLARGINE 300 UNIT/3 ML PEN SUBQ SCH (21:08)
[2017-03-07] MEDS: NYSTATIN POWDER 15 GM TOP SCH (22:22)
[2017-03-07] MEDS: METOPROLOL TARTRATE 25 MG TABLET PO SCH (22:23)
[2017-03-08 05:47] LABS: MEAN CORPUSCULAR HEMOGLOBIN 25.3 pg (27.0-31.0); MEAN CORPUSCULAR HGB CONC 31.9 g/dL (32.0-36.0); MEAN CORPUSCULAR VOLUME 79.3 fL (80.0-94.0); MEAN PLATELET VOLUME 8.5 fL (7.4-11.4); RED BLOOD COUNT 4.37 10^6/uL (4.70-6.10)
[2017-03-08 06:46] LABS: CALCIUM 8.6 mg/dL (8.5-10.3); CREATININE 3.1 mg/dL (0.6-1.2)
[2017-03-08] MEDS: SODIUM CHLORIDE FLUSH 0.9% 10 ML SYRINGE IVP SCH ×3 (06:50→21:44)
[2017-03-08] MEDS: INSULIN ASPART 300 UNIT/3 ML PEN SUBQ SCH ×4 (09:24→21:48)
[2017-03-08] MEDS: BUMETANIDE 1 MG/4 ML VIAL IVP SCH ×2 (09:46→21:48)
[2017-03-08] MEDS: FLUoxetine 10 MG CAPSULE PO SCH (09:48)
[2017-03-08] MEDS: PANTOPRAZOLE 40 MG TABLET PO SCH (09:48)
[2017-03-08] MEDS: hydrALAZINE 10 MG TABLET PO SCH ×3 (09:48→21:41)
[2017-03-08] MEDS: SPIRONOLACTONE 25 MG TABLET PO SCH ×2 (09:49→21:41)
[2017-03-08] MEDS: ASPIRIN EC 81 MG TABLET PO SCH (09:49)
[2017-03-08] MEDS: METOPROLOL TARTRATE 25 MG TABLET PO SCH ×2 (09:49→21:41)
[2017-03-08] MEDS: NYSTATIN POWDER 15 GM TOP SCH ×2 (09:50→21:42)
[2017-03-08] MEDS: ZINC OXIDE 20% OINT 28.35 GM TUBE TOP PRN (09:50)
[2017-03-08] MEDS: POLYETHYLENE GLYCOL 3350 17 GM PACKET PO SCH (09:50)
[2017-03-08] MEDS: levoFLOXacin 750 MG/150 ML 750 MG/150 ML BAG IV SCH (09:51)
[2017-03-08] MEDS: MORPHINE 2 MG/ML CARPUJECT IVP PRN ×2 (10:54→14:36)
--- NOTE | 2017-03-08 12:17 | PROVIDER PROGRESS NOTE ---
Subjective - Prog Note Date Prog Note Date: 03/08/17 Prog Note Time: 12:15 - Subjective Pt reports feeling: Improved (Patient is more cooperative today. His agitation is better managed as well.) Current Medications - Current Medications Current Medications: Aspirin, Bumex, Zyrtec, Prozac, apresoline, NovoLog, Lantus, Levaquin, Aldactone , Ativan, morphine, zinc oxide, Zyprexa, Protonix, MiraLAX, and normal saline Objective - Vital Signs/Intake & Output Reviewed Vital Signs: Yes Vital Signs: Vital Signs x48h Temp Pulse Resp BP BP Pulse Ox 03/08/17 09:49 168/62 H 03/08/17 08:23 36.4 C L 80 18 168/62 H 98 Intake & Output: Intake & Output 03/05/17 03/06/17 03/07/17 03/08/17 23:59 23:59 23:59 23:59 Intake Total 1290 770 580 990 Output Total 150 3 Balance 1140 767 580 990 - Objective General Appearance: positive: No acute distress, Lethargic Eyes Bilateral: positive: Normal inspection, PERRL, EOMI, No lid inflammation, Conjunctivae nml, No scleral icterus ENT: positive: ENT inspection nml, Pharynx nml, No signs of dehydration Neck: positive: Nml inspection, Thyroid nml, No JVD, Trachea midline. negative : Thyromegaly Respiratory: positive: Chest non-tender, No respiratory distress, Breath sounds nml. negative: Wheezes, Rales, Rhonchi Cardiovascular: positive: Regular rate & rhythm, No murmur, No gallop Abdomen: positive: Non-tender, No organomegaly, Nml bowel sounds, No distention. negative: Tenderness Back: positive: Nml inspection. negative: CVA tenderness (R), CVA tenderness (L ) Skin: positive: Color nml, No rash, Warm, Dry. negative: Cyanosis Extremities: positive: Non-tender, Full ROM, Nml appearance, Pedal edema Neurologic/Psychiatric: positive: CN's nml (2-12), Motor nml, Sensation nml, Mood/affect nml, Disoriented to place, Disoriented to time - Lab Results Fish Bones: 03/08/17 05:23 03/08/17 05:23 Other Labs: Lab Results x24hrs 03/08/17 03/08/17 03/08/17 Range/Units 11:24 07:54 05:23 WBC 9.0 (4.8-10.8) x10^3/uL RBC 4.37 L (4.70-6.10) 10^6/uL Hgb 11.0 L (14.0-18.0) g/dL Hct 34.6 L (42.0-52.0) % MCV 79.3 L (80.0-94.0) fL MCH 25.3 L (27.0-31.0) pg MCHC 31.9 L (32.0-36.0) g/dL RDW 18.0 H (12.0-15.0) % Plt Count 243 (130-450) 10^3/uL MPV 8.5 (7.4-11.4) fL Sodium (135-145) mmol/L Potassium (3.5-5.0) mmol/L Chloride (101-111) mmol/L Carbon Dioxide (21-32) mmol/L Anion Gap (6-13) BUN (6-20) mg/dL Creatinine (0.6-1.2) mg/dL Estimated GFR (MDRD) (>89) Glucose (70-100) mg/dL POC Whole Bld Glucose 252 H 157 H (70 - 100) mg/dL Calcium (8.5-10.3) mg/dL B-Natriuretic Peptide (5-100) pg/mL 03/08/17 03/08/17 03/07/17 Range/Units 05:23 05:23 20:21 WBC (4.8-10.8) x10^3/uL RBC (4.70-6.10) 10^6/uL Hgb (14.0-18.0) g/dL Hct (42.0-52.0) % MCV (80.0-94.0) fL MCH (27.0-31.0) pg MCHC (32.0-36.0) g/dL RDW (12.0-15.0) % Plt Count (130-450) 10^3/uL MPV (7.4-11.4) fL Sodium 138 (135-145) mmol/L Potassium 4.5 (3.5-5.0) mmol/L Chloride 99 L (101-111) mmol/L Carbon Dioxide 25 (21-32) mmol/L Anion Gap 14.0 H (6-13) BUN 86 H* (6-20) mg/dL Creatinine 3.1 H (0.6-1.2) mg/dL Estimated GFR (MDRD) 19 L (>89) Glucose 192 H (70-100) mg/dL POC Whole Bld Glucose 160 H (70 - 100) mg/dL Calcium 8.6 (8.5-10.3) mg/dL B-Natriuretic Peptide 1681 H (5-100) pg/mL 03/07/17 Range/Units 16:35 WBC (4.8-10.8) x10^3/uL RBC (4.70-6.10) 10^6/uL Hgb (14.0-18.0) g/dL Hct (42.0-52.0) % MCV (80.0-94.0) fL MCH (27.0-31.0) pg MCHC (32.0-36.0) g/dL RDW (12.0-15.0) % Plt Count (130-450) 10^3/uL MPV (7.4-11.4) fL Sodium (135-145) mmol/L Potassium (3.5-5.0) mmol/L Chloride (101-111) mmol/L Carbon Dioxide (21-32) mmol/L Anion Gap (6-13) BUN (6-20) mg/dL Creatinine (0.6-1.2) mg/dL Estimated GFR (MDRD) (>89) Glucose (70-100) mg/dL POC Whole Bld Glucose 179 H (70 - 100) mg/dL Calcium (8.5-10.3) mg/dL B-Natriuretic Peptide (5-100) pg/mL Assessment/Plan - Problem List (1) Acute on chronic right heart failure Impression: The patient slowly continues to return back to baseline. He has had an increase in his BNP which is gone from 900-1600. He is more responsive today and more cooperative however. (2) Acute on chronic renal insufficiency Impression: Patient's creatinine continues to slowly return back to baseline which is high twos to low threes. He continues to have a markedly elevated BUN but this is a result of trying to dry him out because of his fluid overload. (3) Acute metabolic encephalopathy Impression: Patient's mentation appears to be clearing towards baseline. He was able to recognize his and daughter yesterday and had meaningful conversations with them both.
[2017-03-08] MEDS: LORazepam 2 MG/ML VIAL IVP PRN ×3 (13:34→21:43)
[2017-03-08] MEDS: OLANZapine 10 MG VIAL IM PRN (16:35)
[2017-03-08] MEDS ORDERED: SENNA 8.6 MG TABLET ONE (21:42)
[2017-03-08] MEDS: INSULIN GLARGINE 300 UNIT/3 ML PEN SUBQ SCH (21:52)
[2017-03-08] MEDS: SENNA 8.6 MG TABLET PO SCH (22:04)
[2017-03-09] MEDS: SODIUM CHLORIDE FLUSH 0.9% 10 ML SYRINGE IVP PRN ×4 (00:46→22:17)
[2017-03-09] MEDS: LORazepam 2 MG/ML VIAL IVP PRN ×2 (00:46→03:09)
[2017-03-09] MEDS: PANTOPRAZOLE 40 MG TABLET PO SCH (06:22)
[2017-03-09] MEDS: hydrALAZINE 10 MG TABLET PO SCH ×3 (06:22→22:17)
[2017-03-09] MEDS: SODIUM CHLORIDE FLUSH 0.9% 10 ML SYRINGE IVP SCH ×3 (06:23→19:48)
[2017-03-09] MEDS: SENNA 8.6 MG TABLET PO SCH ×3 (06:23→16:07)
[2017-03-09 06:43] LABS: CALCIUM 8.8 mg/dL (8.5-10.3); CREATININE 3.2 mg/dL (0.6-1.2)
[2017-03-09] MEDS: FLUoxetine 10 MG CAPSULE PO SCH (07:59)
[2017-03-09] MEDS: METOPROLOL TARTRATE 25 MG TABLET PO SCH ×2 (07:59→22:16)
[2017-03-09] MEDS: SPIRONOLACTONE 25 MG TABLET PO SCH ×2 (07:59→22:16)
[2017-03-09] MEDS: ASPIRIN EC 81 MG TABLET PO SCH (07:59)
[2017-03-09] MEDS: NYSTATIN POWDER 15 GM TOP SCH ×2 (08:00→21:59)
[2017-03-09] MEDS: BUMETANIDE 1 MG/4 ML VIAL IVP SCH ×2 (08:00→21:59)
[2017-03-09] MEDS: INSULIN ASPART 300 UNIT/3 ML PEN SUBQ SCH ×4 (08:01→21:58)
[2017-03-09] MEDS: POLYETHYLENE GLYCOL 3350 17 GM PACKET PO SCH (08:16)
[2017-03-09] MEDS ORDERED: LORazepam 2 MG/ML VIAL IVP PRN (13:27)
--- NOTE | 2017-03-09 16:01 | PROVIDER PROGRESS NOTE ---
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 Patients baseline is 2.8 Patient making good urine and electrolytes are normal Patients BUN continues to be very high and given his encephalopathy is concerning for uremia (4) Urinary Tract Infection Impression: Patient had positive UA Urine cx grew e coli Levaquin day 6 of 7 (5) Diabetes Impression: Blood glucose is elevated in the 200s Patient continued on lantus 25 units qpm and SS insulin with meals Continue to monitor - Current Meds Current Meds: Current Medications Generic Name Dose Route Start Last Admin Trade Name Vanesa PRN Reason Stop Dose Admin Aspirin 81 mg 03/03/17 09:00 03/09/17 07:59 Ecotrin PO 81 mg DAILY TEQUILA Administration Bumetanide 2 mg 03/03/17 22:30 03/09/17 08:00 Bumex Inj IVP 2 mg BID TEQUILA Administration Fluoxetine HCl 20 mg 03/04/17 09:00 03/09/17 07:59 Prozac PO 20 mg DAILY TEQUILA Administration Hydralazine HCl 10 mg 03/04/17 14:00 03/09/17 06:22 Apresoline PO 10 mg TID TEQUILA Administration Levofloxacin 750 mg in 150 mls @ 100 mls/hr 03/04/17 08:00 03/08/17 11:46 Levaquin 750 Mg/150 Ml IV Infused Q48H TEQUILA Infusion Insulin Aspart 1 - 9 unit 03/05/17 17:00 03/09/17 11:29 Novolog SUBQ 5 unit 0800,1200,1700,2100 TEQUILA Administration Protocol Insulin Glargine 25 unit 03/04/17 20:30 03/08/17 21:52 Lantus Solostar SUBQ 25 unit QPM TEQUILA Administration Metoprolol Tartrate 25 mg 03/07/17 22:00 03/09/17 07:59 Lopressor PO 25 mg BID TEQUILA Administration Morphine Sulfate 2 mg 03/04/17 11:14 03/08/17 14:36 Morphine (Carpuject) IVP 2 mg Q2H PRN Administration PAIN Multi-Ingredient Ointment 1 applic 03/03/17 19:36 03/08/17 09:50 Zinc Oxide TOP 1 applic PRN PRN Administration Skin Care Nystatin 1 applic 03/07/17 22:00 03/09/17 08:00 Nystop TOP 1 applic BID TEQUILA Administration Olanzapine 5 mg 03/03/17 23:36 03/08/17 16:35 Zyprexa Im IM 5 mg Q6H PRN Administration Agitation Pantoprazole Sodium 40 mg 03/04/17 07:00 03/09/17 06:22 Protonix PO 40 mg QDAC TEQUILA Administration Polyethylene Glycol 17 gm 03/03/17 09:00 03/09/17 08:16 Miralax PO 17 gm DAILY TEQUILA Administration Senna 17.2 - 25.8 mg 03/08/17 22:00 03/09/17 11:28 Senokot PO 03/09/17 16:01 17.2 mg Q6H TEQUILA Administration Sodium Chloride 10 ml 03/02/17 22:30 03/09/17 03:10 Normal Saline Flush 0.9% IVP 10 ml PRN PRN Administration NEEDED PER PROVIDER ORDERS Sodium Chloride 10 ml 03/03/17 06:00 03/09/17 06:23 Normal Saline Flush 0.9% IVP 10 ml Q8HR TEQUILA Administration Spironolactone 25 mg 03/03/17 09:00 03/09/17 07:59 Aldactone PO 25 mg BID TEQUILA Administration Sterile Water 10 ml 03/04/17 10:31 03/08/17 16:35 Sterile Water IR 10 ml Q6H PRN Administration DILUENT FOR OLANZAPINE - Lab Result Lab results reviewed: Yes Fish Bone Diagrams: 03/08/17 05:23 03/09/17 05:43 - Additional Planning Condition/Complexity: Guarded My Orders: My Active Orders 03/09/17 08:19 Straight Catheter Insertion [RC] ONCE 03/09/17 13:27 LORazepam INJ [Ativan Inj (Vial)] 1 mg IVP Q8H PRN 03/10/17 05:00 BNP - B-NATRIURETIC PEPTIDE [IAI] DAILYLAB CBC - COMP BLD CT W/AUTO DIFF [HEME] DAILYLAB CMP, RFLX TO IONIZED CA IF [CHEM] DAILYLAB 03/11/17 05:00 BNP - B-NATRIURETIC PEPTIDE [IAI] DAILYLAB CBC - COMP BLD CT W/AUTO DIFF [HEME] DAILYLAB CMP, RFLX TO IONIZED CA IF [CHEM] DAILYLAB 03/12/17 05:00 BNP - B-NATRIURETIC PEPTIDE [IAI] DAILYLAB CBC - COMP BLD CT W/AUTO DIFF [HEME] DAILYLAB CMP, RFLX TO IONIZED CA IF [CHEM] DAILYLAB 03/13/17 05:00 BNP - B-NATRIURETIC PEPTIDE [IAI] DAILYLAB CBC - COMP BLD CT W/AUTO DIFF [HEME] DAILYLAB CMP, RFLX TO IONIZED CA IF [CHEM] DAILYLAB Consult/Specialty: PT Plan Discussed with:: Patient, Family, Spouse Time Spent: 31-60 minutes Subjective - Subjective Patient Reports: Other (Drowsy, confused, follows commands but very sluggish. No fevers or chills.) Nursing Reports: Confused Objective Vital Signs: Vital Signs - 24 hr 03/09/17 03/09/17 03/09/17 01:58 07:55 07:59 Temperature 36.8 C 36.4 C L Heart Rate [ 94 74 Brachial] Respiratory 18 18 Rate Blood Pressure 126/54 L Blood Pressure 149/74 H [Right Brachial artery] Blood Pressure 126/54 L [Right Radial artery] O2 Saturation 94 96 03/09/17 03/09/17 15:41 15:46 Temperature 36.3 C L Heart Rate [ 69 68 Brachial] Respiratory 20 Rate Blood Pressure Blood Pressure 165/64 H 148/71 H [Right Brachial artery] Blood Pressure [Right Radial artery] O2 Saturation 94 Oxygen O2 Source Room air I&O (Last 24 Hrs): Intake and Output Totals x24h 03/07/17 03/08/17 03/09/17 23:59 23:59 23:59 Intake Total 580 1190 400 Output Total 1200 Balance 580 1190 -800 General: Mild distress (Yelling out), Other (Lethargic) HEENT: Atraumatic, PERRLA, EOMI, Mucous membr. moist/pink Neck: Supple, No JVD, No thyromegaly, +2 carotid pulse wo bruit, No LAD Lymphatic: no adenopathy Neuro: Disoriented, Non Focal, CN 2-12 Grossly Intact Cardiovascular: Regular rate, Normal S1, Normal S2, No murmurs Respiratory: Chest non-tender, No respiratory distress, Breath sounds nml Abdomen: Normal bowel sounds, Soft, No tenderness, No hepatospenomegaly Extremities: No clubbing, No cyanosis, No edema, Normal pulses Skin: No rashes, No breakdown - Results Results: Laboratory Results WBC 9.0 x10^3/uL (4.8-10.8) 03/08/17 05:23 RBC 4.37 10^6/uL (4.70-6.10) L 03/08/17 05:23 Hgb 11.0 g/dL (14.0-18.0) L 03/08/17 05:23 Hct 34.6 % (42.0-52.0) L 03/08/17 05:23 MCV 79.3 fL (80.0-94.0) L 03/08/17 05:23 MCH 25.3 pg (27.0-31.0) L 03/08/17 05:23 MCHC 31.9 g/dL (32.0-36.0) L 03/08/17 05:23 RDW 18.0 % (12.0-15.0) H 03/08/17 05:23 Plt Count 243 10^3/uL (130-450) 03/08/17 05:23 MPV 8.5 fL (7.4-11.4) 03/08/17 05:23 Neut # Not Reportable 03/04/17 05:34 Lymph # Not Reportable 03/04/17 05:34 [place] # Not Reportable 03/04/17 05:34 Eos # Not Reportable 03/04/17 05:34 Baso # Not Reportable 03/04/17 05:34 Absolute Nucleated RBC Not Reportable 03/04/17 05:34 Total Counted 100 03/04/17 05:34 Band Neuts % (Manual) 10 % (0-10) 03/04/17 05:34 Abnorm Lymph % (Manual) 0 % 03/04/17 05:34 Nucleated RBC % Not Reportable 03/04/17 05:34 Neutrophils # (Manual) 23.9 10^3/uL (1.5-6.6) H 03/04/17 05:34 Lymphocytes # (Manual) 3.0 10^3/uL (1.5-3.5) 03/04/17 05:34 Monocytes # (Manual) 2.7 10^3/uL (0.0-1.0) H 03/04/17 05:34 Eosinophils # (Manual) 0.0 10^3/uL (0-0.7) 03/04/17 05:34 Basophils # (Manual) 0.0 10^3/uL (0-0.1) 03/04/17 05:34 Differential Comment MANUAL DIFFERENTIAL 03/04/17 05:34 Platelet Estimate NORMAL (130-450,000) (NORMAL) 03/04/17 05:34 RBC Morph Micro Appear NORMAL APPEARANCE (NORMAL) 03/04/17 05:34 VBG pH 7.399 (7.31-7.41) 03/04/17 05:34 VBG pCO2 31.2 mmHg (41-51) L 03/04/17 05:34 VBG pO2 218.9 mmHg (25-47) H 03/04/17 05:34 VBG HCO3 18.8 mmol/L (23-28) L 03/04/17 05:34 VBG Total CO2 19.8 mmol/L (24-29) L 03/04/17 05:34 VBG O2 Saturation 99.3 % (60-80) H 03/04/17 05:34 VBG Base Excess -5.0 mmol/L (-2 - +2) L 03/04/17 05:34 Sodium 139 mmol/L (135-145) 03/09/17 05:43 Potassium 4.1 mmol/L (3.5-5.0) 03/09/17 05:43 Chloride 98 mmol/L (101-111) L 03/09/17 05:43 Carbon Dioxide 24 mmol/L (21-32) 03/09/17 05:43 Anion Gap 17.0 (6-13) H 03/09/17 05:43 BUN 84 mg/dL (6-20) H* 03/09/17 05:43 Creatinine 3.2 mg/dL (0.6-1.2) H 03/09/17 05:43 Estimated GFR (MDRD) 19 (>89) L 03/09/17 05:43 Glucose 189 mg/dL (70-100) H 03/09/17 05:43 POC Whole Bld Glucose 235 mg/dL (70 - 100) H 03/09/17 11:20 Glycated Hemoglobin 9.1 % (4.6-6.2) H 03/02/17 20:12 Estim Average Glucose 214 (70-100) H 03/02/17 20:12 Calcium 8.8 mg/dL (8.5-10.3) 03/09/17 05:43 Phosphorus 3.7 mg/dL (2.5-4.6) 03/06/17 06:16 Magnesium 2.1 mg/dL (1.7-2.8) 03/06/17 06:16 Total Bilirubin 1.3 mg/dL (0.2-1.0) H 03/02/17 20:12 AST 34 IU/L (10-42) 03/02/17 20:12 ALT 18 IU/L (10-60) 03/02/17 20:12 Alkaline Phosphatase 103 IU/L (42-121) 03/02/17 20:12 Ammonia 9.0 umol/L (7-35) 03/03/17 11:17 B-Natriuretic Peptide 1757 pg/mL (5-100) H 03/09/17 05:43 Total Protein 7.5 g/dL (6.7-8.2) 03/02/17 20:12 Albumin 3.5 g/dL (3.2-5.5) 03/02/17 20:12 Globulin 4.0 g/dL (2.1-4.2) 03/02/17 20:12 Albumin/Globulin Ratio 0.9 (1.0-2.2) L 03/02/17 20:12 Lipase 14 U/L (22-51) L 03/02/17 20:12 Urine Color YELLOW 03/02/17 22:38 Urine Clarity CLOUDY (CLEAR) 03/02/17 22:38 Urine pH 6.0 PH (5.0-7.5) 03/02/17 22:38 Ur Specific [place] 1.010 (1.002-1.030) 03/02/17 22:38 Urine Protein 100 mg/dL (NEGATIVE) H 03/02/17 22:38 Urine Glucose (UA) NEGATIVE mg/dL (NEGATIVE) 03/02/17 22:38 Urine Ketones NEGATIVE mg/dL (NEGATIVE) 03/02/17 22:38 Urine Occult Blood MODERATE (NEGATIVE) H 03/02/17 22:38 Urine Nitrite POSITIVE (NEGATIVE) H 03/02/17 22:38 Urine Bilirubin NEGATIVE (NEGATIVE) 03/02/17 22:38 Urine Urobilinogen 0.2 (NORMAL) E.U./dL (NORMAL) 03/02/17 22:38 Ur Leukocyte Esterase MODERATE (NEGATIVE) H 03/02/17 22:38 Urine RBC TNTC /HPF (0-5) H 03/02/17 22:38 Urine WBC >25 /HPF (0-3) H 03/02/17 22:38 Ur Squamous Epith Cells FEW Squamous (<= Few) 03/02/17 22:38 Urine Bacteria Moderate /HPF (None Seen) H 03/02/17 22:38 Ur Microscopic Review INDICATED 03/02/17 22:38 Urine Culture Comments INDICATED 03/02/17 22:38
[2017-03-09] MEDS ORDERED: HALOPERIDOL 5 MG/ML VIAL IVP PRN (19:32)
[2017-03-09] MEDS: MORPHINE 2 MG/ML CARPUJECT IVP PRN ×2 (19:48→22:21)
[2017-03-09] MEDS ORDERED: ONDANSETRON 4 MG/2 ML VIAL IVP PRN (19:58)
[2017-03-09] MEDS: INSULIN GLARGINE 300 UNIT/3 ML PEN SUBQ SCH (21:58)
[2017-03-10 06:20] LABS: BASOPHILS % (AUTO) 0.3 %; EOSINOPHILS # (AUTO) 0.2 10^3/uL (0.0-0.7); EOSINOPHILS % (AUTO) 1.1 %; HGB - HEMOGLOBIN 11.6 g/dL (14.0-18.0); LYMPHOCYTES # (AUTO) 0.3 10^3/uL (1.5-3.5); LYMPHOCYTES % (AUTO) 2.3 %; MEAN CORPUSCULAR HEMOGLOBIN 24.6 pg (27.0-31.0); MEAN CORPUSCULAR HGB CONC 31.3 g/dL (32.0-36.0); MEAN CORPUSCULAR VOLUME 78.5 fL (80.0-94.0); MONOCYTES # (AUTO) 0.8 10^3/uL (0.0-1.0); MONOCYTES % (AUTO) 5.8 %; NEUTROPHILS # (AUTO) 12.1 10^3/uL (1.5-6.6); NEUTROPHILS % (AUTO) 90.5 %; PLT - PLATELET COUNT 239 10^3/uL (130-450); RED CELL DISTRIBUTION WIDTH 18.2 % (12.0-15.0); WHITE BLOOD COUNT 13.4 x10^3/uL (4.8-10.8)
[2017-03-10] MEDS: hydrALAZINE 10 MG TABLET PO SCH ×3 (06:23→21:04)
[2017-03-10] MEDS: PANTOPRAZOLE 40 MG TABLET PO SCH (06:23)
[2017-03-10] MEDS: SODIUM CHLORIDE FLUSH 0.9% 10 ML SYRINGE IVP SCH ×3 (06:23→21:05)
[2017-03-10 06:34] LABS: ALBUMIN 2.8 g/dL (3.2-5.5); ALBUMIN/GLOBULIN RATIO 0.7 (1.0-2.2); ALKALINE PHOSPHATASE 115 IU/L (42-121); ALT ALANINE AMINOTRANSFERASE 188 IU/L (10-60); AST ASPARTATE AMINOTRANSFERASE 42 IU/L (10-42); BILIRUBIN,TOTAL 1.6 mg/dL (0.2-1.0); BUN - BLOOD UREA NITROGEN 78 mg/dL (6-20); CARBON DIOXIDE - CO2 26 mmol/L (21-32); CHLORIDE 101 mmol/L (101-111); CREATININE 3.2 mg/dL (0.6-1.2); GFR - MDRD 19 (>89); GLUCOSE 167 mg/dL (70-100); SODIUM 142 mmol/L (135-145); TOTAL PROTEIN 6.8 g/dL (6.7-8.2)
[2017-03-10] MEDS: POLYETHYLENE GLYCOL 3350 17 GM PACKET PO SCH (08:14)
[2017-03-10] MEDS: METOPROLOL TARTRATE 25 MG TABLET PO SCH ×2 (08:14→21:04)
[2017-03-10] MEDS: INSULIN ASPART 300 UNIT/3 ML PEN SUBQ SCH ×4 (08:15→21:02)
[2017-03-10] MEDS: ASPIRIN EC 81 MG TABLET PO SCH (08:15)
[2017-03-10] MEDS: FLUoxetine 10 MG CAPSULE PO SCH (08:15)
[2017-03-10] MEDS ORDERED: SODIUM CHLORIDE 0.9% 1,000 ML IV SCH (09:00)
[2017-03-10 09:01] LABS: THYROID STIMULATING HORMONE 2.14 uIU/mL (0.34-5.60)
[2017-03-10 09:12] LABS: FOLATE 12.5 ng/mL (5.90 - >24.8)
[2017-03-10] MEDS: NYSTATIN POWDER 15 GM TOP SCH ×2 (10:15→21:04)
--- NOTE | 2017-03-10 11:37 | CT Report ---
DATE OF SERVICE: 03/10/2017 CT BRAIN WITHOUT CONTRAST: 03/10/2017 CLINICAL INDICATION: Altered mental status. COMPARISON: 03/02/2017, 02/26/2017 TECHNIQUE: Axial CT images of the brain were obtained without intravenous contrast. FINDINGS: The ventricles and sulci again demonstrate symmetric enlargement, compatible with atrophy. Chronic ischemic changes in the periventricular white matter structures are stable. There is no evidence of intracranial hemorrhage, mass effect, or midline shift. The basilar cisterns are patent. There is new sphenoid sinus mucosal thickening. The visualized orbital contents are unremarkable. IMPRESSION: STABLE ATROPHY. NO EVIDENCE OF HEMORRHAGE OR MASS EFFECT. NEW SPHENOID SINUS DISEASE. In accordance with CT protocol optimization, one or more of the following dose reduction techniques were utilized for this exam: automated exposure control, adjustment of mA and/or KV based on patient size, or use of iterative reconstructive technique. TD: 03/10/2017 12:36
--- NOTE | 2017-03-10 12:41 | PROVIDER PROGRESS NOTE ---
Assessment/Plan - Problem List (1) Acute metabolic encephalopathy Assessment/Plan: Likely secondary to delirium, UTI, uremia and over medication or possible medication side effects The patient is still confused and agitated (yelling out) intermittently Will stop levaquin as patient has completed 7 days of antibiotics for UTI and levaquin can cause encephalopathy like what patient is displaying Will stop aldactone given patients GFR and bumex as patient appears very dry Also will stop morphine, zyprexa and hold ativan It is very possible that much of what we are seeing is effects of sedative medications above that are not being metabolized well secondary to poor renal function CT head ordered today shows no acute changes except sphenoid sinusitis Patient able to tell me his name and that he is at the hospital when aroused Will give patient 24 hours with above plan and if patient is still not improving will need to consider an MRI of the brain WBC is up but no fevers and no neck stiffness maybe secondary to sphenoid sinusitis will hold abx unless patient spikes fever or starts having symptoms (2) Acute on chronic right heart failure Impression: Appears dry and overdiuresed Legs and scrotum appear very wrinkled and dry Weight is down from 127 kg to 99.5 kg Give gentle hydration Stop bumex and aldactone (3) Acute on chronic renal insufficiency 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 Patients baseline is 2.8 Patient making good urine and electrolytes are normal BUN improved today but patient appears very dry Gentle hydration Stop bumex Stop aldactone given GFR 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 (4) Urinary Tract Infection Impression: Patient had positive UA Urine cx grew e coli Completed treatment with levaquin Stop levaquin today which could be contributing to patients encephalopathy WBC is increased therefore will get repeat UA (5) Diabetes Impression: Blood glucose improved this am Patient continued on lantus 25 units qpm and SS insulin with meals Continue to monitor Patient not eating much will need to watch carefully - Current Meds Current Meds: Current Medications Generic Name Dose Route Start Last Admin Trade Name Vanesa PRN Reason Stop Dose Admin Aspirin 81 mg 03/03/17 09:00 03/10/17 08:15 Ecotrin PO 81 mg DAILY TEQUILA Administration Fluoxetine HCl 20 mg 03/04/17 09:00 03/10/17 08:15 Prozac PO 20 mg DAILY TEQUILA Administration Hydralazine HCl 10 mg 03/04/17 14:00 03/10/17 06:23 Apresoline PO 10 mg TID TEQUILA Administration Sodium Chloride 1,000 mls @ 75 mls/hr 03/10/17 09:00 03/10/17 10:15 Normal Saline 0.9% IV 03/10/17 22:19 75 mls/hr .[id number] TEQUILA Administration Insulin Aspart 1 - 9 unit 03/05/17 17:00 03/10/17 08:15 Novolog SUBQ 3 unit 0800,1200,1700,2100 TEQUILA Administration Protocol Insulin Glargine 25 unit 03/04/17 20:30 03/09/17 21:58 Lantus Solostar SUBQ 25 unit QPM TEQUILA Administration Metoprolol Tartrate 25 mg 03/07/17 22:00 03/10/17 08:14 Lopressor PO 25 mg BID TEQUILA Administration Multi-Ingredient Ointment 1 applic 03/03/17 19:36 03/08/17 09:50 Zinc Oxide TOP 1 applic PRN PRN Administration Skin Care Nystatin 1 applic 03/07/17 22:00 03/10/17 10:15 Nystop TOP 1 applic BID TEQUILA Administration Pantoprazole Sodium 40 mg 03/04/17 07:00 03/10/17 06:23 Protonix PO 40 mg QDAC TEQUILA Administration Polyethylene Glycol 17 gm 03/03/17 09:00 03/10/17 08:14 Miralax PO 17 gm DAILY TEQUILA Administration Sodium Chloride 10 ml 03/02/17 22:30 03/09/17 22:17 Normal Saline Flush 0.9% IVP 10 ml PRN PRN Administration NEEDED PER PROVIDER ORDERS Sodium Chloride 10 ml 03/03/17 06:00 03/10/17 06:23 Normal Saline Flush 0.9% IVP 10 ml Q8HR TEQUILA Administration Sterile Water 10 ml 03/04/17 10:31 03/08/17 16:35 Sterile Water IR 10 ml Q6H PRN Administration DILUENT FOR OLANZAPINE - Lab Result Lab results reviewed: Yes Fish Bone Diagrams: 03/10/17 06:06 03/10/17 06:06 - Diagnostic Imaging Results Diagnostic Imaging Results: Final report reviewed Diagnostic Imaging Results Comments: CT BRAIN WITHOUT CONTRAST: 03/10/2017 CLINICAL INDICATION: Altered mental status. COMPARISON: 03/02/2017, 02/26/2017 TECHNIQUE: Axial CT images of the brain were obtained without intravenous contrast. FINDINGS: The ventricles and sulci again demonstrate symmetric enlargement, compatible with atrophy. Chronic ischemic changes in the periventricular white matter structures are stable. There is no evidence of intracranial hemorrhage, mass effect, or midline shift. The basilar cisterns are patent. There is new sphenoid sinus mucosal thickening. The visualized orbital contents are unremarkable. IMPRESSION: STABLE ATROPHY. NO EVIDENCE OF HEMORRHAGE OR MASS EFFECT. NEW SPHENOID SINUS DISEASE. In accordance with CT protocol optimization, one or more of the following dose reduction techniques were utilized for this exam: automated exposure control, adjustment of mA and/or KV based on patient size, or use of iterative reconstructive technique. - Additional Planning Condition/Complexity: Guarded My Orders: My Active Orders 03/09/17 13:27 LORazepam INJ [Ativan Inj (Vial)] 1 mg IVP Q8H PRN 03/09/17 18:45 Mccarthy Insertion [RC] QSHIFT 03/10/17 UA, MICROSCOPIC & CULT IF [URIN] Routine 03/10/17 08:20 TREPONEMA AB IGG [REFLAB] Routine 03/10/17 09:00 Sodium Chloride 0.9% [Normal Saline 0.9%] 1,000 ml IV 75 mls/hr 03/11/17 05:00 BNP - B-NATRIURETIC PEPTIDE [IAI] DAILYLAB CBC - COMP BLD CT W/AUTO DIFF [HEME] DAILYLAB CMP, RFLX TO IONIZED CA IF [CHEM] DAILYLAB 03/12/17 05:00 BNP - B-NATRIURETIC PEPTIDE [IAI] DAILYLAB CBC - COMP BLD CT W/AUTO DIFF [HEME] DAILYLAB CMP, RFLX TO IONIZED CA IF [CHEM] DAILYLAB 03/13/17 05:00 BNP - B-NATRIURETIC PEPTIDE [IAI] DAILYLAB CBC - COMP BLD CT W/AUTO DIFF [HEME] DAILYLAB CMP, RFLX TO IONIZED CA IF [CHEM] DAILYLAB Consult/Specialty: PT Plan Discussed with:: Patient, Family Time Spent: 31-60 minutes Subjective - Subjective Patient Reports: Other (Lethargic, confused, yelling out "help" but when you ask him does not have pain or other complaints. Able to tell me his name and that he is at hospital.) Nursing Reports: Confused Objective Vital Signs: Vital Signs - 24 hr 03/09/17 03/09/17 03/09/17 15:41 15:46 22:06 Temperature 36.3 C L Heart Rate [ 69 68 Brachial] Respiratory 20 Rate Blood Pressure Blood Pressure 165/64 H 148/71 H 173/77 H [Right Brachial artery] O2 Saturation 94 03/09/17 03/09/17 03/10/17 22:16 23:30 08:03 Temperature 36.7 C 36.7 C Heart Rate [ 78 83 Brachial] Respiratory 16 18 Rate Blood Pressure 173/77 H Blood Pressure 153/63 H 120/70 [Right Brachial artery] O2 Saturation 93 93 03/10/17 08:14 Temperature Heart Rate [ Brachial] Respiratory Rate Blood Pressure 120/70 Blood Pressure [Right Brachial artery] O2 Saturation Oxygen O2 Source Room air I&O (Last 24 Hrs): Intake and Output Totals x24h 03/08/17 03/09/17 03/10/17 23:59 23:59 23:59 Intake Total 1190 550 450 Output Total 4400 3550 Balance 1190 -3850 -3100 General: Mild distress (confused, calling out), Other (Agitated) HEENT: Atraumatic, PERRLA, EOMI, Other (very dry mucus membranes) Neck: Supple, No JVD, No thyromegaly, +2 carotid pulse wo bruit, No LAD Lymphatic: no adenopathy Neuro: Disoriented, Non Focal, CN 2-12 Grossly Intact, Other (lethargic, arousable able to state his name, wifes name, that he is in the hospital, follows commands) Cardiovascular: Regular rate, Normal S1, Normal S2, No murmurs Respiratory: Chest non-tender, No respiratory distress, Breath sounds nml Abdomen: Normal bowel sounds, Soft, No tenderness, No hepatospenomegaly Extremities: No clubbing, No cyanosis, No edema, Normal pulses, Other (LE wrinkled and dry) Skin: No rashes, No breakdown - Results Results: Laboratory Results WBC 13.4 x10^3/uL (4.8-10.8) H 03/10/17 06:06 RBC 4.70 10^6/uL (4.70-6.10) 03/10/17 06:06 Hgb 11.6 g/dL (14.0-18.0) L 03/10/17 06:06 Hct 36.9 % (42.0-52.0) L 03/10/17 06:06 MCV 78.5 fL (80.0-94.0) L 03/10/17 06:06 MCH 24.6 pg (27.0-31.0) L 03/10/17 06:06 MCHC 31.3 g/dL (32.0-36.0) L 03/10/17 06:06 RDW 18.2 % (12.0-15.0) H 03/10/17 06:06 Plt Count 239 10^3/uL (130-450) 03/10/17 06:06 MPV 8.0 fL (7.4-11.4) 03/10/17 06:06 Neut # 12.1 10^3/uL (1.5-6.6) H 03/10/17 06:06 Lymph # 0.3 10^3/uL (1.5-3.5) L 03/10/17 06:06 [place] # 0.8 10^3/uL (0.0-1.0) 03/10/17 06:06 Eos # 0.2 10^3/uL (0.0-0.7) 03/10/17 06:06 Baso # 0.0 10^3/uL (0.0-0.1) 03/10/17 06:06 Absolute Nucleated RBC 0.01 x10^3/uL 03/10/17 06:06 Total Counted 100 03/04/17 05:34 Band Neuts % (Manual) 10 % (0-10) 03/04/17 05:34 Abnorm Lymph % (Manual) 0 % 03/04/17 05:34 Nucleated RBC % 0.0 /100WBC 03/10/17 06:06 Neutrophils # (Manual) 23.9 10^3/uL (1.5-6.6) H 03/04/17 05:34 Lymphocytes # (Manual) 3.0 10^3/uL (1.5-3.5) 03/04/17 05:34 Monocytes # (Manual) 2.7 10^3/uL (0.0-1.0) H 03/04/17 05:34 Eosinophils # (Manual) 0.0 10^3/uL (0-0.7) 03/04/17 05:34 Basophils # (Manual) 0.0 10^3/uL (0-0.1) 03/04/17 05:34 Differential Comment MANUAL DIFFERENTIAL 03/04/17 05:34 Platelet Estimate NORMAL (130-450,000) (NORMAL) 03/04/17 05:34 RBC Morph Micro Appear NORMAL APPEARANCE (NORMAL) 03/04/17 05:34 VBG pH 7.399 (7.31-7.41) 03/04/17 05:34 VBG pCO2 31.2 mmHg (41-51) L 03/04/17 05:34 VBG pO2 218.9 mmHg (25-47) H 03/04/17 05:34 VBG HCO3 18.8 mmol/L (23-28) L 03/04/17 05:34 VBG Total CO2 19.8 mmol/L (24-29) L 03/04/17 05:34 VBG O2 Saturation 99.3 % (60-80) H 03/04/17 05:34 VBG Base Excess -5.0 mmol/L (-2 - +2) L 03/04/17 05:34 Sodium 142 mmol/L (135-145) 03/10/17 06:06 Potassium 4.1 mmol/L (3.5-5.0) 03/10/17 06:06 Chloride 101 mmol/L (101-111) 03/10/17 06:06 Carbon Dioxide 26 mmol/L (21-32) 03/10/17 06:06 Anion Gap 15.0 (6-13) H 03/10/17 06:06 BUN 78 mg/dL (6-20) H 03/10/17 06:06 Creatinine 3.2 mg/dL (0.6-1.2) H 03/10/17 06:06 Estimated GFR (MDRD) 19 (>89) L 03/10/17 06:06 Glucose 167 mg/dL (70-100) H 03/10/17 06:06 POC Whole Bld Glucose 215 mg/dL (70 - 100) H 03/10/17 11:31 Glycated Hemoglobin 9.1 % (4.6-6.2) H 03/02/17 20:12 Estim Average Glucose 214 (70-100) H 03/02/17 20:12 Calcium 9.0 mg/dL (8.5-10.3) 03/10/17 06:06 Ionized Calcium NO 03/10/17 06:06 Phosphorus 3.7 mg/dL (2.5-4.6) 03/06/17 06:16 Magnesium 2.1 mg/dL (1.7-2.8) 03/06/17 06:16 Total Bilirubin 1.6 mg/dL (0.2-1.0) H 03/10/17 06:06 AST 42 IU/L (10-42) 03/10/17 06:06 ALT 188 IU/L (10-60) H 03/10/17 06:06 Alkaline Phosphatase 115 IU/L (42-121) 03/10/17 06:06 Ammonia 12.0 umol/L (7-35) 03/10/17 08:20 B-Natriuretic Peptide 1886 pg/mL (5-100) H 03/10/17 06:06 Total Protein 6.8 g/dL (6.7-8.2) 03/10/17 06:06 Albumin 2.8 g/dL (3.2-5.5) L 03/10/17 06:06 Globulin 4.0 g/dL (2.1-4.2) 03/10/17 06:06 Albumin/Globulin Ratio 0.7 (1.0-2.2) L 03/10/17 06:06 Lipase 14 U/L (22-51) L 03/02/17 20:12 Vitamin B12 818 pg/mL (180-914) 03/10/17 08:20 Folate 12.50 ng/mL (5.90 - >24.8) 03/10/17 08:20 TSH 2.14 uIU/mL (0.34-5.60) 03/10/17 08:20 Urine Color YELLOW 03/02/17 22:38 Urine Clarity CLOUDY (CLEAR) 03/02/17 22:38 Urine pH 6.0 PH (5.0-7.5) 03/02/17 22:38 Ur Specific [place] 1.010 (1.002-1.030) 03/02/17 22:38 Urine Protein 100 mg/dL (NEGATIVE) H 03/02/17 22:38 Urine Glucose (UA) NEGATIVE mg/dL (NEGATIVE) 03/02/17 22:38 Urine Ketones NEGATIVE mg/dL (NEGATIVE) 03/02/17 22:38 Urine Occult Blood MODERATE (NEGATIVE) H 03/02/17 22:38 Urine Nitrite POSITIVE (NEGATIVE) H 03/02/17 22:38 Urine Bilirubin NEGATIVE (NEGATIVE) 03/02/17 22:38 Urine Urobilinogen 0.2 (NORMAL) E.U./dL (NORMAL) 03/02/17 22:38 Ur Leukocyte Esterase MODERATE (NEGATIVE) H 03/02/17 22:38 Urine RBC TNTC /HPF (0-5) H 03/02/17 22:38 Urine WBC >25 /HPF (0-3) H 03/02/17 22:38 Ur Squamous Epith Cells FEW Squamous (<= Few) 03/02/17 22:38 Urine Bacteria Moderate /HPF (None Seen) H 03/02/17 22:38 Ur Microscopic Review INDICATED 03/02/17 22:38 Urine Culture Comments INDICATED 03/02/17 22:38
[2017-03-10] MEDS: INSULIN GLARGINE 300 UNIT/3 ML PEN SUBQ SCH (21:03)
[2017-03-11] MEDS: SODIUM CHLORIDE FLUSH 0.9% 10 ML SYRINGE IVP SCH ×3 (05:52→21:21)
[2017-03-11] MEDS: hydrALAZINE 10 MG TABLET PO SCH ×3 (05:52→20:57)
[2017-03-11] MEDS: PANTOPRAZOLE 40 MG TABLET PO SCH (05:52)
[2017-03-11 06:12] LABS: BASOPHILS # (AUTO) 0.1 10^3/uL (0.0-0.1); BASOPHILS % (AUTO) 0.9 %; EOSINOPHILS # (AUTO) 0.4 10^3/uL (0.0-0.7); EOSINOPHILS % (AUTO) 3.6 %; HGB - HEMOGLOBIN 10.9 g/dL (14.0-18.0); LYMPHOCYTES # (AUTO) 1.6 10^3/uL (1.5-3.5); LYMPHOCYTES % (AUTO) 14.8 %; MEAN CORPUSCULAR HEMOGLOBIN 24.5 pg (27.0-31.0); MEAN CORPUSCULAR HGB CONC 30.9 g/dL (32.0-36.0); MEAN CORPUSCULAR VOLUME 79.4 fL (80.0-94.0); MEAN PLATELET VOLUME 8.5 fL (7.4-11.4); MONOCYTES # (AUTO) 1.2 10^3/uL (0.0-1.0); MONOCYTES % (AUTO) 11.8 %; NEUTROPHILS # (AUTO) 7.2 10^3/uL (1.5-6.6); NEUTROPHILS % (AUTO) 68.9 %; PLT - PLATELET COUNT 224 10^3/uL (130-450); RED BLOOD COUNT 4.47 10^6/uL (4.70-6.10); RED CELL DISTRIBUTION WIDTH 18.4 % (12.0-15.0); WHITE BLOOD COUNT 10.5 x10^3/uL (4.8-10.8)
[2017-03-11 06:25] LABS: ALBUMIN 2.6 g/dL (3.2-5.5); ALBUMIN/GLOBULIN RATIO 0.7 (1.0-2.2); ALKALINE PHOSPHATASE 107 IU/L (42-121); ALT ALANINE AMINOTRANSFERASE 127 IU/L (10-60); AST ASPARTATE AMINOTRANSFERASE 34 IU/L (10-42); BILIRUBIN,TOTAL 1.8 mg/dL (0.2-1.0); BUN - BLOOD UREA NITROGEN 75 mg/dL (6-20); CALCIUM 8.4 mg/dL (8.5-10.3); CARBON DIOXIDE - CO2 25 mmol/L (21-32); CHLORIDE 100 mmol/L (101-111); CREATININE 3.1 mg/dL (0.6-1.2); GFR - MDRD 19 (>89); GLUCOSE 151 mg/dL (70-100); SODIUM 139 mmol/L (135-145); TOTAL PROTEIN 6.4 g/dL (6.7-8.2)
[2017-03-11] MEDS: POLYETHYLENE GLYCOL 3350 17 GM PACKET PO SCH (09:01)
[2017-03-11] MEDS: INSULIN ASPART 300 UNIT/3 ML PEN SUBQ SCH ×4 (09:02→21:08)
[2017-03-11] MEDS: ASPIRIN EC 81 MG TABLET PO SCH (09:02)
[2017-03-11] MEDS: METOPROLOL TARTRATE 25 MG TABLET PO SCH ×2 (09:03→20:57)
[2017-03-11] MEDS: FLUoxetine 10 MG CAPSULE PO SCH (09:04)
[2017-03-11] MEDS: NYSTATIN POWDER 15 GM TOP SCH ×2 (09:13→20:57)
[2017-03-11] MEDS ORDERED: SODIUM CHLORIDE 0.9% 1,000 ML IV SCH (11:00)
--- NOTE | 2017-03-11 16:32 | PROVIDER PROGRESS NOTE ---
Assessment/Plan - Problem List (1) Acute metabolic encephalopathy Assessment/Plan: Likely secondary to delirium, UTI, uremia and over medication or possible medication side effects CT head was negative Most of patients sedatives were stopped and he was given IVFs Patient seems to be much better today and is closer to his baseline MMSE was performed today and patient scored 17 which puts him in the category of moderate degree of impairment According to the family patient has been declining slowly for the past 3 months This maybe close to his new baseline but the patient may still improve At this point patient does not have capacity to make decisions such as leaving AMA as he did from [facility] a few weeks back. 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 Patients baseline is 2.8 Patient making good urine and electrolytes are normal BUN improved today but still appears dry Gentle hydration Stopped bumex Stopped aldactone given GFR 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 - Current Meds Current Meds: Current Medications Generic Name Dose Route Start Last Admin Trade Name Freq PRN Reason Stop Dose Admin Aspirin 81 mg 03/03/17 09:00 03/11/17 09:02 Ecotrin PO 81 mg DAILY TEQUILA Administration Fluoxetine HCl 20 mg 03/04/17 09:00 03/11/17 09:04 Prozac PO 20 mg DAILY TEQUILA Administration Hydralazine HCl 10 mg 03/04/17 14:00 03/11/17 14:47 Apresoline PO 10 mg TID TEQUILA Administration Sodium Chloride 1,000 mls @ 50 mls/hr 03/11/17 11:00 03/11/17 11:51 Normal Saline 0.9% IV 03/12/17 06:59 50 mls/hr .Q20H TEQUILA Administration Insulin Aspart 1 - 9 unit 03/05/17 17:00 03/11/17 11:43 Novolog SUBQ 7 unit 0800,1200,1700,2100 TEQUILA Administration Protocol Metoprolol Tartrate 25 mg 03/07/17 22:00 03/11/17 09:03 Lopressor PO 25 mg BID TEQUILA Administration Multi-Ingredient Ointment 1 applic 03/03/17 19:36 03/08/17 09:50 Zinc Oxide TOP 1 applic PRN PRN Administration Skin Care Nystatin 1 applic 03/07/17 22:00 03/11/17 09:13 Nystop TOP 1 applic BID TEQUILA Administration Pantoprazole Sodium 40 mg 03/04/17 07:00 03/11/17 05:52 Protonix PO 40 mg QDAC TEQUILA Administration Polyethylene Glycol 17 gm 03/03/17 09:00 03/11/17 09:01 Miralax PO 17 gm DAILY TEQUILA Administration Sodium Chloride 10 ml 03/02/17 22:30 03/09/17 22:17 Normal Saline Flush 0.9% IVP 10 ml PRN PRN Administration NEEDED PER PROVIDER ORDERS Sodium Chloride 10 ml 03/03/17 06:00 03/11/17 12:18 Normal Saline Flush 0.9% IVP Not Given Q8HR TEQUILA Sterile Water 10 ml 03/04/17 10:31 03/08/17 16:35 Sterile Water IR 10 ml Q6H PRN Administration DILUENT FOR OLANZAPINE - Lab Result Lab results reviewed: Yes Fish Bone Diagrams: 03/11/17 06:03 03/11/17 06:03 - Diagnostic Imaging Results Diagnostic Imaging Results: Final report reviewed - Additional Planning Condition/Complexity: Improved My Orders: My Active Orders 03/11/17 Clinical Swallow Evaluation [ST] Routine 03/11/17 11:00 Sodium Chloride 0.9% [Normal Saline 0.9%] 1,000 ml IV 50 mls/hr 03/11/17 21:00 Insulin Glargine [Lantus Solostar] 35 unit SUBQ QPM 03/11/17 22:00 QUEtiapine [SEROquel] 25 mg PO QPM 03/12/17 05:00 BNP - B-NATRIURETIC PEPTIDE [IAI] DAILYLAB CBC - COMP BLD CT W/AUTO DIFF [HEME] DAILYLAB CMP, RFLX TO IONIZED CA IF [CHEM] DAILYLAB 03/13/17 05:00 BNP - B-NATRIURETIC PEPTIDE [IAI] DAILYLAB CBC - COMP BLD CT W/AUTO DIFF [HEME] DAILYLAB CMP, RFLX TO IONIZED CA IF [CHEM] DAILYLAB Consult/Specialty: PT Plan Discussed with:: Patient, Family, Spouse Time Spent: 31-60 minutes Subjective - Subjective Patient Reports: Feeling Better, Resting Comfortably, Other (Less confused today but still drowsy at times he recieved one dose of ativan last night. Patient following commands, eating, up in chair.) Nursing Reports: No Complaints Objective Vital Signs: Vital Signs - 24 hr 03/10/17 03/10/17 03/10/17 16:07 21:04 23:35 Temperature 36.3 C L 36.1 C L Heart Rate [ 72 63 Brachial] Respiratory 16 18 Rate Blood Pressure 145/81 H Blood Pressure 148/81 H 143/84 H [Left Brachial artery] Blood Pressure [Right Brachial artery] O2 Saturation 99 95 03/11/17 03/11/17 07:26 09:03 Temperature 36.2 C L Heart Rate [ 66 Brachial] Respiratory 16 Rate Blood Pressure 115/83 H Blood Pressure [Left Brachial artery] Blood Pressure 115/83 H [Right Brachial artery] O2 Saturation 98 Oxygen O2 Source Room air I&O (Last 24 Hrs): Intake and Output Totals x24h 03/09/17 03/10/17 03/11/17 23:59 23:59 23:59 Intake Total 550 1906.25 780 Output Total 4400 5225 1000 Balance -3850 -3318.75 -220 General: Alert, Cooperative, Other (Oriented x2) HEENT: Atraumatic, PERRLA, EOMI, Other (Dry mucus membranes) Neck: Supple, No JVD, No thyromegaly, +2 carotid pulse wo bruit, No LAD Lymphatic: no adenopathy Neuro: Alert, Non Focal, CN 2-12 Grossly Intact, Other (Oriented x2) Cardiovascular: Regular rate, Normal S1, Normal S2, No murmurs Respiratory: Chest non-tender, No respiratory distress, Breath sounds nml Abdomen: Normal bowel sounds, Soft, No tenderness, No hepatospenomegaly Extremities: No clubbing, No cyanosis, No edema, Normal pulses Skin: No rashes, No breakdown - Results Results: Laboratory Results WBC 10.5 x10^3/uL (4.8-10.8) 03/11/17 06:03 RBC 4.47 10^6/uL (4.70-6.10) L 03/11/17 06:03 Hgb 10.9 g/dL (14.0-18.0) L 03/11/17 06:03 Hct 35.5 % (42.0-52.0) L 03/11/17 06:03 MCV 79.4 fL (80.0-94.0) L 03/11/17 06:03 MCH 24.5 pg (27.0-31.0) L 03/11/17 06:03 MCHC 30.9 g/dL (32.0-36.0) L 03/11/17 06:03 RDW 18.4 % (12.0-15.0) H 03/11/17 06:03 Plt Count 224 10^3/uL (130-450) 03/11/17 06:03 MPV 8.5 fL (7.4-11.4) 03/11/17 06:03 Neut # 7.2 10^3/uL (1.5-6.6) H 03/11/17 06:03 Lymph # 1.6 10^3/uL (1.5-3.5) 03/11/17 06:03 [place] # 1.2 10^3/uL (0.0-1.0) H 03/11/17 06:03 Eos # 0.4 10^3/uL (0.0-0.7) 03/11/17 06:03 Baso # 0.1 10^3/uL (0.0-0.1) 03/11/17 06:03 Absolute Nucleated RBC 0.00 x10^3/uL 03/11/17 06:03 Total Counted 100 03/04/17 05:34 Band Neuts % (Manual) 10 % (0-10) 03/04/17 05:34 Abnorm Lymph % (Manual) 0 % 03/04/17 05:34 Nucleated RBC % 0.0 /100WBC 03/11/17 06:03 Neutrophils # (Manual) 23.9 10^3/uL (1.5-6.6) H 03/04/17 05:34 Lymphocytes # (Manual) 3.0 10^3/uL (1.5-3.5) 03/04/17 05:34 Monocytes # (Manual) 2.7 10^3/uL (0.0-1.0) H 03/04/17 05:34 Eosinophils # (Manual) 0.0 10^3/uL (0-0.7) 03/04/17 05:34 Basophils # (Manual) 0.0 10^3/uL (0-0.1) 03/04/17 05:34 Differential Comment MANUAL DIFFERENTIAL 03/04/17 05:34 Platelet Estimate NORMAL (130-450,000) (NORMAL) 03/04/17 05:34 RBC Morph Micro Appear NORMAL APPEARANCE (NORMAL) 03/04/17 05:34 VBG pH 7.399 (7.31-7.41) 03/04/17 05:34 VBG pCO2 31.2 mmHg (41-51) L 03/04/17 05:34 VBG pO2 218.9 mmHg (25-47) H 03/04/17 05:34 VBG HCO3 18.8 mmol/L (23-28) L 03/04/17 05:34 VBG Total CO2 19.8 mmol/L (24-29) L 03/04/17 05:34 VBG O2 Saturation 99.3 % (60-80) H 03/04/17 05:34 VBG Base Excess -5.0 mmol/L (-2 - +2) L 03/04/17 05:34 Sodium 139 mmol/L (135-145) 03/11/17 06:03 Potassium 3.7 mmol/L (3.5-5.0) 03/11/17 06:03 Chloride 100 mmol/L (101-111) L 03/11/17 06:03 Carbon Dioxide 25 mmol/L (21-32) 03/11/17 06:03 Anion Gap 14.0 (6-13) H 03/11/17 06:03 BUN 75 mg/dL (6-20) H 03/11/17 06:03 Creatinine 3.1 mg/dL (0.6-1.2) H 03/11/17 06:03 Estimated GFR (MDRD) 19 (>89) L 03/11/17 06:03 Glucose 151 mg/dL (70-100) H 03/11/17 06:03 POC Whole Bld Glucose 282 mg/dL (70 - 100) H 03/11/17 11:25 Glycated Hemoglobin 9.1 % (4.6-6.2) H 03/02/17 20:12 Estim Average Glucose 214 (70-100) H 03/02/17 20:12 Calcium 8.4 mg/dL (8.5-10.3) L 03/11/17 06:03 Ionized Calcium NO 03/11/17 06:03 Phosphorus 3.7 mg/dL (2.5-4.6) 03/06/17 06:16 Magnesium 2.1 mg/dL (1.7-2.8) 03/06/17 06:16 Total Bilirubin 1.8 mg/dL (0.2-1.0) H 03/11/17 06:03 AST 34 IU/L (10-42) 03/11/17 06:03 ALT 127 IU/L (10-60) H 03/11/17 06:03 Alkaline Phosphatase 107 IU/L (42-121) 03/11/17 06:03 Ammonia 12.0 umol/L (7-35) 03/10/17 08:20 B-Natriuretic Peptide 1198 pg/mL (5-100) H 03/11/17 06:03 Total Protein 6.4 g/dL (6.7-8.2) L 03/11/17 06:03 Albumin 2.6 g/dL (3.2-5.5) L 03/11/17 06:03 Globulin 3.8 g/dL (2.1-4.2) 03/11/17 06:03 Albumin/Globulin Ratio 0.7 (1.0-2.2) L 03/11/17 06:03 Lipase 14 U/L (22-51) L 03/02/17 20:12 Vitamin B12 818 pg/mL (180-914) 03/10/17 08:20 Folate 12.50 ng/mL (5.90 - >24.8) 03/10/17 08:20 TSH 2.14 uIU/mL (0.34-5.60) 03/10/17 08:20 Urine Color YELLOW 03/02/17 22:38 Urine Clarity CLOUDY (CLEAR) 03/02/17 22:38 Urine pH 6.0 PH (5.0-7.5) 03/02/17 22:38 Ur Specific [place] 1.010 (1.002-1.030) 03/02/17 22:38 Urine Protein 100 mg/dL (NEGATIVE) H 03/02/17 22:38 Urine Glucose (UA) NEGATIVE mg/dL (NEGATIVE) 03/02/17 22:38 Urine Ketones NEGATIVE mg/dL (NEGATIVE) 03/02/17 22:38 Urine Occult Blood MODERATE (NEGATIVE) H 03/02/17 22:38 Urine Nitrite POSITIVE (NEGATIVE) H 03/02/17 22:38 Urine Bilirubin NEGATIVE (NEGATIVE) 03/02/17 22:38 Urine Urobilinogen 0.2 (NORMAL) E.U./dL (NORMAL) 03/02/17 22:38 Ur Leukocyte Esterase MODERATE (NEGATIVE) H 03/02/17 22:38 Urine RBC TNTC /HPF (0-5) H 03/02/17 22:38 Urine WBC >25 /HPF (0-3) H 03/02/17 22:38 Ur Squamous Epith Cells FEW Squamous (<= Few) 03/02/17 22:38 Urine Bacteria Moderate /HPF (None Seen) H 03/02/17 22:38 Ur Microscopic Review INDICATED 03/02/17 22:38 Urine Culture Comments INDICATED 03/02/17 22:38
[2017-03-11 19:15] LABS: BILIRUBIN,URINE NEGATIVE (NEGATIVE); GLUCOSE, URINE (UA) NEGATIVE (NEGATIVE); KETONES,URINE (UA) NEGATIVE (NEGATIVE); LEUKOCYTE ESTERASE, URINE MODERATE (NEGATIVE); NITRITE,URINE NEGATIVE (NEGATIVE); OCCULT BLOOD,URINE LARGE (NEGATIVE); PH,URINE 6.5 PH (5.0-7.5); PROTEIN,URINE 30 mg/dL (NEGATIVE); UROBILINOGEN,URINE 1 (NORMAL) E.U./dL (NORMAL)
[2017-03-11 19:16] LABS: CLARITY,URINE HAZY (CLEAR)
[2017-03-11 19:38] LABS: BACTERIA,URINE Few /HPF (None Seen); MUCUS,URINE Few Strands; SQUAMOUS EPITHELIAL CELL,UR RARE Squamous (<= Few); WBC CLUMPS,URINE PRESENT
[2017-03-11] MEDS: INSULIN GLARGINE 300 UNIT/3 ML PEN SUBQ SCH (21:10)
[2017-03-11] MEDS: QUEtiapine 25 MG TABLET PO SCH (21:31)
[2017-03-12] MEDS: SODIUM CHLORIDE FLUSH 0.9% 10 ML SYRINGE IVP SCH ×3 (05:25→20:50)
[2017-03-12] MEDS: hydrALAZINE 10 MG TABLET PO SCH ×3 (06:26→21:39)
[2017-03-12] MEDS: PANTOPRAZOLE 40 MG TABLET PO SCH (06:26)
[2017-03-12 06:28] LABS: BASOPHILS # (AUTO) 0.2 10^3/uL (0.0-0.1); BASOPHILS % (AUTO) 1.6 %; EOSINOPHILS # (AUTO) 0.4 10^3/uL (0.0-0.7); HGB - HEMOGLOBIN 11.2 g/dL (14.0-18.0); LYMPHOCYTES # (AUTO) 1.5 10^3/uL (1.5-3.5); LYMPHOCYTES % (AUTO) 14.4 %; MEAN CORPUSCULAR HEMOGLOBIN 24.9 pg (27.0-31.0); MEAN CORPUSCULAR HGB CONC 31.6 g/dL (32.0-36.0); MEAN CORPUSCULAR VOLUME 78.8 fL (80.0-94.0); MEAN PLATELET VOLUME 8.5 fL (7.4-11.4); MONOCYTES # (AUTO) 0.9 10^3/uL (0.0-1.0); MONOCYTES % (AUTO) 8.4 %; NEUTROPHILS # (AUTO) 7.6 10^3/uL (1.5-6.6); NEUTROPHILS % (AUTO) 71.6 %; PLT - PLATELET COUNT 249 10^3/uL (130-450); RED BLOOD COUNT 4.51 10^6/uL (4.70-6.10); WHITE BLOOD COUNT 10.7 x10^3/uL (4.8-10.8)
[2017-03-12 06:40] LABS: ALBUMIN 2.9 g/dL (3.2-5.5); ALBUMIN/GLOBULIN RATIO 0.7 (1.0-2.2); ALKALINE PHOSPHATASE 106 IU/L (42-121); ALT ALANINE AMINOTRANSFERASE 98 IU/L (10-60); AST ASPARTATE AMINOTRANSFERASE 30 IU/L (10-42); BILIRUBIN,TOTAL 1.3 mg/dL (0.2-1.0); BUN - BLOOD UREA NITROGEN 74 mg/dL (6-20); CALCIUM 8.5 mg/dL (8.5-10.3); CARBON DIOXIDE - CO2 25 mmol/L (21-32); CHLORIDE 100 mmol/L (101-111); CREATININE 3.2 mg/dL (0.6-1.2); GFR - MDRD 19 (>89); GLUCOSE 186 mg/dL (70-100); SODIUM 138 mmol/L (135-145)
[2017-03-12] MEDS: INSULIN ASPART 300 UNIT/3 ML PEN SUBQ SCH ×4 (08:13→21:38)
[2017-03-12] MEDS: FLUoxetine 10 MG CAPSULE PO SCH (08:21)
[2017-03-12] MEDS: ASPIRIN EC 81 MG TABLET PO SCH (08:22)
[2017-03-12] MEDS: METOPROLOL TARTRATE 25 MG TABLET PO SCH ×2 (08:22→21:38)
[2017-03-12] MEDS: POLYETHYLENE GLYCOL 3350 17 GM PACKET PO SCH (08:26)
[2017-03-12] MEDS: NYSTATIN POWDER 15 GM TOP SCH ×2 (11:47→21:39)
--- NOTE | 2017-03-12 16:24 | PROVIDER PROGRESS NOTE ---
Assessment/Plan - Problem List (1) Dysphagia Assessment/Plan: Continue with this diet restriction (2) Acute on chronic renal insufficiency Assessment/Plan: Stable creat, probably at his baseline (3) Acute on chronic right heart failure Assessment/Plan: No signif edema, since diuretic was put on hold This will need to be restarted soon, at a lower dose (4) Acute metabolic encephalopathy Assessment/Plan: Much improved since sedatives stopped and dehydration resolved Pt to be seen by a staff member from [facility] tomorrow (per ) to be accepted there (5) Diabetes Qualifiers: Diabetes mellitus type: type 1 Diabetes mellitus complication status: without complication Qualified Code(s): E10.9 - Type 1 diabetes mellitus without complications Assessment/Plan: Stable on present meds and diet - Current Meds Current Meds: Current Medications Generic Name Dose Route Start Last Admin Trade Name Freq PRN Reason Stop Dose Admin Aspirin 81 mg 03/03/17 09:00 03/12/17 08:22 Ecotrin PO 81 mg DAILY TEQUILA Administration Cetirizine HCl 10 mg 03/03/17 10:47 03/12/17 03:15 Zyrtec PO 10 mg DAILY PRN Administration ALLERGIES Fluoxetine HCl 20 mg 03/04/17 09:00 03/12/17 08:21 Prozac PO 20 mg DAILY TEQUILA Administration Hydralazine HCl 10 mg 03/04/17 14:00 03/12/17 14:33 Apresoline PO 10 mg TID TEQUILA Administration Insulin Aspart 1 - 9 unit 03/05/17 17:00 03/12/17 11:47 Novolog SUBQ 5 unit 0800,1200,1700,2100 TEQUILA Administration Protocol Insulin Glargine 35 unit 03/11/17 21:00 03/11/17 21:10 Lantus Solostar SUBQ 35 unit QPM TEQUILA Administration Metoprolol Tartrate 25 mg 03/07/17 22:00 03/12/17 08:22 Lopressor PO 25 mg BID TEQUILA Administration Multi-Ingredient Ointment 1 applic 03/03/17 19:36 03/08/17 09:50 Zinc Oxide TOP 1 applic PRN PRN Administration Skin Care Nystatin 1 applic 03/07/17 22:00 03/12/17 11:47 Nystop TOP 1 applic BID TEQUILA Administration Pantoprazole Sodium 40 mg 03/04/17 07:00 03/12/17 06:26 Protonix PO 40 mg QDAC TEQUILA Administration Polyethylene Glycol 17 gm 03/03/17 09:00 03/12/17 08:26 Miralax PO Not Given DAILY TEQUILA Quetiapine Fumarate 25 mg 03/11/17 22:00 03/11/17 21:31 Seroquel PO 25 mg QPM TEQUILA Administration Sodium Chloride 10 ml 03/02/17 22:30 03/09/17 22:17 Normal Saline Flush 0.9% IVP 10 ml PRN PRN Administration NEEDED PER PROVIDER ORDERS Sodium Chloride 10 ml 03/03/17 06:00 03/12/17 14:27 Normal Saline Flush 0.9% IVP Not Given Q8HR TEQUILA Sterile Water 10 ml 03/04/17 10:31 03/08/17 16:35 Sterile Water IR 10 ml Q6H PRN Administration DILUENT FOR OLANZAPINE - Lab Result Fish Bone Diagrams: 03/13/17 05:35 03/13/17 05:35 Subjective - Subjective Patient Reports: Feeling Better Nursing Reports: No Complaints, Other (More alert and cooperative) Objective Vital Signs: Vital Signs - 24 hr 03/11/17 03/12/17 03/12/17 23:41 06:20 08:22 Temperature 36.5 C Heart Rate [ 62 62 Brachial] Respiratory 18 Rate Blood Pressure 123/71 Blood Pressure [Left Brachial artery] Blood Pressure 107/52 L 131/54 H [Right Radial artery] O2 Saturation 97 97 03/12/17 03/12/17 03/12/17 13:59 14:32 15:44 Temperature 36.3 C L 36.7 C Heart Rate [ 64 66 Brachial] Respiratory 20 18 Rate Blood Pressure Blood Pressure 130/71 [Left Brachial artery] Blood Pressure 155/61 H [Right Radial artery] O2 Saturation 97 100 Oxygen O2 Source Room air I&O (Last 24 Hrs): Intake and Output Totals x24h 03/10/17 03/11/17 03/12/17 23:59 23:59 23:59 Intake Total 1906.25 1700 240 Output Total 5225 1075 51 Balance -3318.75 625 189 General: Alert HEENT: Mucous membr. moist/pink Neck: Supple Cardiovascular: No murmurs Respiratory: No respiratory distress Abdomen: Soft Extremities: Other (edema(+)) - Results Results: Laboratory Results WBC 10.7 x10^3/uL (4.8-10.8) 03/12/17 06:19 RBC 4.51 10^6/uL (4.70-6.10) L 03/12/17 06:19 Hgb 11.2 g/dL (14.0-18.0) L 03/12/17 06:19 Hct 35.6 % (42.0-52.0) L 03/12/17 06:19 MCV 78.8 fL (80.0-94.0) L 03/12/17 06:19 MCH 24.9 pg (27.0-31.0) L 03/12/17 06:19 MCHC 31.6 g/dL (32.0-36.0) L 03/12/17 06:19 RDW 18.0 % (12.0-15.0) H 03/12/17 06:19 Plt Count 249 10^3/uL (130-450) 03/12/17 06:19 MPV 8.5 fL (7.4-11.4) 03/12/17 06:19 Neut # 7.6 10^3/uL (1.5-6.6) H 03/12/17 06:19 Lymph # 1.5 10^3/uL (1.5-3.5) 03/12/17 06:19 [place] # 0.9 10^3/uL (0.0-1.0) 03/12/17 06:19 Eos # 0.4 10^3/uL (0.0-0.7) 03/12/17 06:19 Baso # 0.2 10^3/uL (0.0-0.1) H 03/12/17 06:19 Absolute Nucleated RBC 0.00 x10^3/uL 03/12/17 06:19 Total Counted 100 03/04/17 05:34 Band Neuts % (Manual) 10 % (0-10) 03/04/17 05:34 Abnorm Lymph % (Manual) 0 % 03/04/17 05:34 Nucleated RBC % 0.0 /100WBC 03/12/17 06:19 Neutrophils # (Manual) 23.9 10^3/uL (1.5-6.6) H 03/04/17 05:34 Lymphocytes # (Manual) 3.0 10^3/uL (1.5-3.5) 03/04/17 05:34 Monocytes # (Manual) 2.7 10^3/uL (0.0-1.0) H 03/04/17 05:34 Eosinophils # (Manual) 0.0 10^3/uL (0-0.7) 03/04/17 05:34 Basophils # (Manual) 0.0 10^3/uL (0-0.1) 03/04/17 05:34 Differential Comment MANUAL DIFFERENTIAL 03/04/17 05:34 Platelet Estimate NORMAL (130-450,000) (NORMAL) 03/04/17 05:34 RBC Morph Micro Appear NORMAL APPEARANCE (NORMAL) 03/04/17 05:34 VBG pH 7.399 (7.31-7.41) 03/04/17 05:34 VBG pCO2 31.2 mmHg (41-51) L 03/04/17 05:34 VBG pO2 218.9 mmHg (25-47) H 03/04/17 05:34 VBG HCO3 18.8 mmol/L (23-28) L 03/04/17 05:34 VBG Total CO2 19.8 mmol/L (24-29) L 03/04/17 05:34 VBG O2 Saturation 99.3 % (60-80) H 03/04/17 05:34 VBG Base Excess -5.0 mmol/L (-2 - +2) L 03/04/17 05:34 Sodium 138 mmol/L (135-145) 03/12/17 06:19 Potassium 4.1 mmol/L (3.5-5.0) 03/12/17 06:19 Chloride 100 mmol/L (101-111) L 03/12/17 06:19 Carbon Dioxide 25 mmol/L (21-32) 03/12/17 06:19 Anion Gap 13.0 (6-13) 03/12/17 06:19 BUN 74 mg/dL (6-20) H 03/12/17 06:19 Creatinine 3.2 mg/dL (0.6-1.2) H 03/12/17 06:19 Estimated GFR (MDRD) 19 (>89) L 03/12/17 06:19 Glucose 186 mg/dL (70-100) H 03/12/17 06:19 POC Whole Bld Glucose 268 mg/dL (70 - 100) H 03/12/17 11:21 Glycated Hemoglobin 9.1 % (4.6-6.2) H 03/02/17 20:12 Estim Average Glucose 214 (70-100) H 03/02/17 20:12 Calcium 8.5 mg/dL (8.5-10.3) 03/12/17 06:19 Ionized Calcium NO 03/12/17 06:19 Phosphorus 3.7 mg/dL (2.5-4.6) 03/06/17 06:16 Magnesium 2.1 mg/dL (1.7-2.8) 03/06/17 06:16 Total Bilirubin 1.3 mg/dL (0.2-1.0) H 03/12/17 06:19 AST 30 IU/L (10-42) 03/12/17 06:19 ALT 98 IU/L (10-60) H 03/12/17 06:19 Alkaline Phosphatase 106 IU/L (42-121) 03/12/17 06:19 Ammonia 12.0 umol/L (7-35) 03/10/17 08:20 B-Natriuretic Peptide 938 pg/mL (5-100) H 03/12/17 06:19 Total Protein 7.0 g/dL (6.7-8.2) 03/12/17 06:19 Albumin 2.9 g/dL (3.2-5.5) L 03/12/17 06:19 Globulin 4.1 g/dL (2.1-4.2) 03/12/17 06:19 Albumin/Globulin Ratio 0.7 (1.0-2.2) L 03/12/17 06:19 Lipase 14 U/L (22-51) L 03/02/17 20:12 Vitamin B12 818 pg/mL (180-914) 03/10/17 08:20 Folate 12.50 ng/mL (5.90 - >24.8) 03/10/17 08:20 TSH 2.14 uIU/mL (0.34-5.60) 03/10/17 08:20 Urine Color YELLOW 03/11/17 18:50 Urine Clarity HAZY (CLEAR) 03/11/17 18:50 Urine pH 6.5 PH (5.0-7.5) 03/11/17 18:50 Ur Specific [place] 1.010 (1.002-1.030) 03/11/17 18:50 Urine Protein 30 mg/dL (NEGATIVE) H 03/11/17 18:50 Urine Glucose (UA) NEGATIVE mg/dL (NEGATIVE) 03/11/17 18:50 Urine Ketones NEGATIVE mg/dL (NEGATIVE) 03/11/17 18:50 Urine Occult Blood LARGE (NEGATIVE) H 03/11/17 18:50 Urine Nitrite NEGATIVE (NEGATIVE) 03/11/17 18:50 Urine Bilirubin NEGATIVE (NEGATIVE) 03/11/17 18:50 Urine Urobilinogen 1 (NORMAL) E.U./dL (NORMAL) 03/11/17 18:50 Ur Leukocyte Esterase MODERATE (NEGATIVE) H 03/11/17 18:50 Urine RBC 11-25 /HPF (0-5) H 03/11/17 18:50 Urine WBC >25 /HPF (0-3) H 03/11/17 18:50 Urine WBC Clumps PRESENT 03/11/17 18:50 Ur Squamous Epith Cells RARE Squamous (<= Few) 03/11/17 18:50 Urine Bacteria Few /HPF (None Seen) 03/11/17 18:50 Urine Mucus Few Strands 03/11/17 18:50 Ur Microscopic Review INDICATED 03/11/17 18:50 Urine Culture Comments INDICATED 03/11/17 18:50 T.pallidum IgG (EIA) NEGATIVE 03/10/17 08:20
[2017-03-12] MEDS ORDERED: LIDOCAINE JELLY 2% 30 ML TUBE TOP PRN (20:24)
[2017-03-12] MEDS: INSULIN GLARGINE 300 UNIT/3 ML PEN SUBQ SCH (21:38)
[2017-03-12] MEDS: QUEtiapine 25 MG TABLET PO SCH (21:39)
[2017-03-12] MEDS: ACETAMINOPHEN 500 MG TABLET PO PRN (22:18)
[2017-03-13] MEDS: SODIUM CHLORIDE FLUSH 0.9% 10 ML SYRINGE IVP SCH ×3 (05:29→21:02)
[2017-03-13 05:59] LABS: BASOPHILS # (AUTO) 0.1 10^3/uL (0.0-0.1); BASOPHILS % (AUTO) 0.9 %; EOSINOPHILS # (AUTO) 0.4 10^3/uL (0.0-0.7); HGB - HEMOGLOBIN 10.2 g/dL (14.0-18.0); LYMPHOCYTES # (AUTO) 1.6 10^3/uL (1.5-3.5); MEAN CORPUSCULAR HEMOGLOBIN 24.6 pg (27.0-31.0); MEAN CORPUSCULAR HGB CONC 30.7 g/dL (32.0-36.0); MEAN CORPUSCULAR VOLUME 80.1 fL (80.0-94.0); MEAN PLATELET VOLUME 8.8 fL (7.4-11.4); MONOCYTES % (AUTO) 10.4 %; NEUTROPHILS # (AUTO) 6.8 10^3/uL (1.5-6.6); NEUTROPHILS % (AUTO) 68.7 %; PLT - PLATELET COUNT 248 10^3/uL (130-450); RED BLOOD COUNT 4.16 10^6/uL (4.70-6.10); RED CELL DISTRIBUTION WIDTH 18.6 % (12.0-15.0); WHITE BLOOD COUNT 9.9 x10^3/uL (4.8-10.8)
[2017-03-13 06:07] LABS: ALBUMIN 2.7 g/dL (3.2-5.5); ALBUMIN/GLOBULIN RATIO 0.7 (1.0-2.2); ALKALINE PHOSPHATASE 92 IU/L (42-121); ALT ALANINE AMINOTRANSFERASE 67 IU/L (10-60); AST ASPARTATE AMINOTRANSFERASE 24 IU/L (10-42); BILIRUBIN,TOTAL 1.3 mg/dL (0.2-1.0); BUN - BLOOD UREA NITROGEN 64 mg/dL (6-20); CALCIUM 8.5 mg/dL (8.5-10.3); CARBON DIOXIDE - CO2 24 mmol/L (21-32); CHLORIDE 103 mmol/L (101-111); GFR - MDRD 20 (>89); GLUCOSE 108 mg/dL (70-100); SODIUM 138 mmol/L (135-145); TOTAL PROTEIN 6.4 g/dL (6.7-8.2)
[2017-03-13] MEDS: hydrALAZINE 10 MG TABLET PO SCH ×3 (06:13→20:57)
[2017-03-13] MEDS: PANTOPRAZOLE 40 MG TABLET PO SCH (06:13)
[2017-03-13] MEDS ORDERED: LIDOCAINE JELLY 2% 5 ML TUBE TOP PRN (07:23)
[2017-03-13] MEDS: INSULIN ASPART 300 UNIT/3 ML PEN SUBQ SCH ×4 (07:38→20:56)
[2017-03-13] MEDS: METOPROLOL TARTRATE 25 MG TABLET PO SCH ×2 (10:24→20:57)
[2017-03-13] MEDS: ASPIRIN EC 81 MG TABLET PO SCH (10:24)
[2017-03-13] MEDS: FLUoxetine 10 MG CAPSULE PO SCH (10:24)
[2017-03-13] MEDS: POLYETHYLENE GLYCOL 3350 17 GM PACKET PO SCH (10:25)
[2017-03-13] MEDS: NYSTATIN POWDER 15 GM TOP SCH ×2 (10:25→20:37)
[2017-03-13] MEDS ORDERED: MIN OIL/DIMETHICON/COCONUT OIL 92 GM TUBE TOP PRN (11:35)
--- NOTE | 2017-03-13 17:08 | PROVIDER PROGRESS NOTE ---
Assessment/Plan - Problem List (1) Dysphagia Assessment/Plan: Continue with this diet restriction (2) Acute on chronic renal insufficiency Assessment/Plan: Continued creat improvement This is probably his baseline creat (3) Acute on chronic right heart failure Assessment/Plan: Continue present plan Probably tomorrow will resume Spironolactone and/or loop diuretic (4) Acute metabolic encephalopathy Assessment/Plan: Continues with clear mentation since off sedatives and rehydrated Noone from [facility] came to see Pt toshellie. They will evaluate him tomorrow [per [employer]) Continue with PT (5) Diabetes Qualifiers: Diabetes mellitus type: type 1 Diabetes mellitus complication status: without complication Qualified Code(s): E10.9 - Type 1 diabetes mellitus without complications Assessment/Plan: Continue with present meds and diet - Current Meds Current Meds: Current Medications Generic Name Dose Route Start Last Admin Trade Name Freq PRN Reason Stop Dose Admin Acetaminophen 1,000 mg 03/12/17 20:26 03/12/17 22:18 Tylenol PO 1,000 mg Q6HR PRN Administration Pain or Fever > 38C (100.4F) Aspirin 81 mg 03/03/17 09:00 03/13/17 10:24 Ecotrin PO 81 mg DAILY TEQUILA Administration Cetirizine HCl 10 mg 03/03/17 10:47 03/12/17 03:15 Zyrtec PO 10 mg DAILY PRN Administration ALLERGIES Fluoxetine HCl 20 mg 03/04/17 09:00 03/13/17 10:24 Prozac PO 20 mg DAILY TEQUILA Administration Hydralazine HCl 10 mg 03/04/17 14:00 03/13/17 13:57 Apresoline PO 10 mg TID TEQUILA Administration Insulin Aspart 1 - 9 unit 03/05/17 17:00 03/13/17 16:40 Novolog SUBQ 5 unit 0800,1200,1700,2100 TEQUILA Administration Protocol Insulin Glargine 35 unit 03/11/17 21:00 03/12/17 21:38 Lantus Solostar SUBQ 35 unit QPM TEQUILA Administration Metoprolol Tartrate 25 mg 03/07/17 22:00 03/13/17 10:24 Lopressor PO 25 mg BID TEQUILA Administration Multi-Ingredient Ointment 1 applic 03/03/17 19:36 03/08/17 09:50 Zinc Oxide TOP 1 applic PRN PRN Administration Skin Care Nystatin 1 applic 03/07/17 22:00 03/13/17 10:25 Nystop TOP 1 applic BID TEQUILA Administration Pantoprazole Sodium 40 mg 03/04/17 07:00 03/13/17 06:13 Protonix PO 40 mg QDAC TEQUILA Administration Polyethylene Glycol 17 gm 03/03/17 09:00 03/13/17 10:25 Miralax PO Not Given DAILY TEQUILA Quetiapine Fumarate 25 mg 03/11/17 22:00 03/12/17 21:39 Seroquel PO 25 mg QPM TEQUILA Administration Sodium Chloride 10 ml 03/02/17 22:30 03/09/17 22:17 Normal Saline Flush 0.9% IVP 10 ml PRN PRN Administration NEEDED PER PROVIDER ORDERS Sodium Chloride 10 ml 03/03/17 06:00 03/13/17 13:51 Normal Saline Flush 0.9% IVP Not Given Q8HR TEQUILA - Lab Result Fish Bone Diagrams: 03/13/17 05:35 03/13/17 05:35 - Additional Planning My Orders: My Active Orders 03/13/17 11:35 Min Oil/Dimeth/Coconut Oil Crm [Cavilon] 1 applic TOP PRN PRN Subjective - Subjective Patient Reports: No Complaints Nursing Reports: No Complaints Objective Vital Signs: Vital Signs - 24 hr 03/12/17 03/13/17 03/13/17 21:38 00:08 06:00 Temperature 36.5 C Heart Rate [ 60 62 Brachial] Respiratory 20 Rate Blood Pressure 148/62 H Blood Pressure [Right Brachial artery] Blood Pressure 137/58 H 142/60 H [Right Radial artery] O2 Saturation 96 03/13/17 03/13/17 03/13/17 10:24 10:37 14:01 Temperature Heart Rate [ 61 56 L Brachial] Respiratory 20 16 Rate Blood Pressure 144/76 H Blood Pressure 147/63 H [Right Brachial artery] Blood Pressure 144/76 H [Right Radial artery] O2 Saturation 93 99 03/13/17 15:30 Temperature 36.3 C L Heart Rate [ 68 Brachial] Respiratory 20 Rate Blood Pressure Blood Pressure 150/61 H [Right Brachial artery] Blood Pressure [Right Radial artery] O2 Saturation 100 Oxygen O2 Source Room air I&O (Last 24 Hrs): Intake and Output Totals x24h 03/11/17 03/12/17 03/13/17 23:59 23:59 23:59 Intake Total 1700 600 360 Output Total 1075 51 Balance 625 549 360 General: Alert HEENT: Mucous membr. moist/pink Neuro: Alert Cardiovascular: No murmurs Respiratory: No respiratory distress Abdomen: Soft Extremities: Other (trace edema) - Results Results: Laboratory Results WBC 9.9 x10^3/uL (4.8-10.8) 03/13/17 05:35 RBC 4.16 10^6/uL (4.70-6.10) L 03/13/17 05:35 Hgb 10.2 g/dL (14.0-18.0) L 03/13/17 05:35 Hct 33.3 % (42.0-52.0) L 03/13/17 05:35 MCV 80.1 fL (80.0-94.0) 03/13/17 05:35 MCH 24.6 pg (27.0-31.0) L 03/13/17 05:35 MCHC 30.7 g/dL (32.0-36.0) L 03/13/17 05:35 RDW 18.6 % (12.0-15.0) H 03/13/17 05:35 Plt Count 248 10^3/uL (130-450) 03/13/17 05:35 MPV 8.8 fL (7.4-11.4) 03/13/17 05:35 Neut # 6.8 10^3/uL (1.5-6.6) H 03/13/17 05:35 Lymph # 1.6 10^3/uL (1.5-3.5) 03/13/17 05:35 Alexander # 1.0 10^3/uL (0.0-1.0) 03/13/17 05:35 Eos # 0.4 10^3/uL (0.0-0.7) 03/13/17 05:35 Baso # 0.1 10^3/uL (0.0-0.1) 03/13/17 05:35 Absolute Nucleated RBC 0.00 x10^3/uL 03/13/17 05:35 Total Counted 100 03/04/17 05:34 Band Neuts % (Manual) 10 % (0-10) 03/04/17 05:34 Abnorm Lymph % (Manual) 0 % 03/04/17 05:34 Nucleated RBC % 0.0 /100WBC 03/13/17 05:35 Neutrophils # (Manual) 23.9 10^3/uL (1.5-6.6) H 03/04/17 05:34 Lymphocytes # (Manual) 3.0 10^3/uL (1.5-3.5) 03/04/17 05:34 Monocytes # (Manual) 2.7 10^3/uL (0.0-1.0) H 03/04/17 05:34 Eosinophils # (Manual) 0.0 10^3/uL (0-0.7) 03/04/17 05:34 Basophils # (Manual) 0.0 10^3/uL (0-0.1) 03/04/17 05:34 Differential Comment MANUAL DIFFERENTIAL 03/04/17 05:34 Platelet Estimate NORMAL (130-450,000) (NORMAL) 03/04/17 05:34 RBC Morph Micro Appear NORMAL APPEARANCE (NORMAL) 03/04/17 05:34 VBG pH 7.399 (7.31-7.41) 03/04/17 05:34 VBG pCO2 31.2 mmHg (41-51) L 03/04/17 05:34 VBG pO2 218.9 mmHg (25-47) H 03/04/17 05:34 VBG HCO3 18.8 mmol/L (23-28) L 03/04/17 05:34 VBG Total CO2 19.8 mmol/L (24-29) L 03/04/17 05:34 VBG O2 Saturation 99.3 % (60-80) H 03/04/17 05:34 VBG Base Excess -5.0 mmol/L (-2 - +2) L 03/04/17 05:34 Sodium 138 mmol/L (135-145) 03/13/17 05:35 Potassium 3.8 mmol/L (3.5-5.0) 03/13/17 05:35 Chloride 103 mmol/L (101-111) 03/13/17 05:35 Carbon Dioxide 24 mmol/L (21-32) 03/13/17 05:35 Anion Gap 11.0 (6-13) 03/13/17 05:35 BUN 64 mg/dL (6-20) H 03/13/17 05:35 Creatinine 3.0 mg/dL (0.6-1.2) H 03/13/17 05:35 Estimated GFR (MDRD) 20 (>89) L 03/13/17 05:35 Glucose 108 mg/dL (70-100) H 03/13/17 05:35 POC Whole Bld Glucose 252 mg/dL (70 - 100) H 03/13/17 16:37 Glycated Hemoglobin 9.1 % (4.6-6.2) H 03/02/17 20:12 Estim Average Glucose 214 (70-100) H 03/02/17 20:12 Calcium 8.5 mg/dL (8.5-10.3) 03/13/17 05:35 Ionized Calcium NO 03/13/17 05:35 Phosphorus 3.7 mg/dL (2.5-4.6) 03/06/17 06:16 Magnesium 1.8 mg/dL (1.7-2.8) 03/13/17 05:35 Total Bilirubin 1.3 mg/dL (0.2-1.0) H 03/13/17 05:35 AST 24 IU/L (10-42) 03/13/17 05:35 ALT 67 IU/L (10-60) H 03/13/17 05:35 Alkaline Phosphatase 92 IU/L (42-121) 03/13/17 05:35 Ammonia 12.0 umol/L (7-35) 03/10/17 08:20 B-Natriuretic Peptide 932 pg/mL (5-100) H 03/13/17 05:35 Total Protein 6.4 g/dL (6.7-8.2) L 03/13/17 05:35 Albumin 2.7 g/dL (3.2-5.5) L 03/13/17 05:35 Globulin 3.7 g/dL (2.1-4.2) 03/13/17 05:35 Albumin/Globulin Ratio 0.7 (1.0-2.2) L 03/13/17 05:35 Lipase 14 U/L (22-51) L 03/02/17 20:12 Vitamin B12 818 pg/mL (180-914) 03/10/17 08:20 Folate 12.50 ng/mL (5.90 - >24.8) 03/10/17 08:20 TSH 2.14 uIU/mL (0.34-5.60) 03/10/17 08:20 Urine Color YELLOW 03/11/17 18:50 Urine Clarity HAZY (CLEAR) 03/11/17 18:50 Urine pH 6.5 PH (5.0-7.5) 03/11/17 18:50 Ur Specific Bruno 1.010 (1.002-1.030) 03/11/17 18:50 Urine Protein 30 mg/dL (NEGATIVE) H 03/11/17 18:50 Urine Glucose (UA) NEGATIVE mg/dL (NEGATIVE) 03/11/17 18:50 Urine Ketones NEGATIVE mg/dL (NEGATIVE) 03/11/17 18:50 Urine Occult Blood LARGE (NEGATIVE) H 03/11/17 18:50 Urine Nitrite NEGATIVE (NEGATIVE) 03/11/17 18:50 Urine Bilirubin NEGATIVE (NEGATIVE) 03/11/17 18:50 Urine Urobilinogen 1 (NORMAL) E.U./dL (NORMAL) 03/11/17 18:50 Ur Leukocyte Esterase MODERATE (NEGATIVE) H 03/11/17 18:50 Urine RBC 11-25 /HPF (0-5) H 03/11/17 18:50 Urine WBC >25 /HPF (0-3) H 03/11/17 18:50 Urine WBC Clumps PRESENT 03/11/17 18:50 Ur Squamous Epith Cells RARE Squamous (<= Few) 03/11/17 18:50 Urine Bacteria Few /HPF (None Seen) 03/11/17 18:50 Urine Mucus Few Strands 03/11/17 18:50 Ur Microscopic Review INDICATED 03/11/17 18:50 Urine Culture Comments INDICATED 03/11/17 18:50 T.pallidum IgG (EIA) NEGATIVE 03/10/17 08:20
[2017-03-13] MEDS: INSULIN GLARGINE 300 UNIT/3 ML PEN SUBQ SCH (20:55)
[2017-03-13] MEDS: QUEtiapine 25 MG TABLET PO SCH (20:57)
[2017-03-13] MEDS: TAMSULOSIN 0.4 MG CAPSULE PO SCH (21:40)
[2017-03-14] MEDS: PANTOPRAZOLE 40 MG TABLET PO SCH (06:04)
[2017-03-14] MEDS: hydrALAZINE 10 MG TABLET PO SCH ×2 (06:04→13:48)
[2017-03-14] MEDS: SODIUM CHLORIDE FLUSH 0.9% 10 ML SYRINGE IVP SCH ×2 (06:55→13:48)
[2017-03-14] MEDS: POLYETHYLENE GLYCOL 3350 17 GM PACKET PO SCH (08:09)
[2017-03-14] MEDS: INSULIN ASPART 300 UNIT/3 ML PEN SUBQ SCH ×2 (08:18→12:20)
[2017-03-14] MEDS: FLUoxetine 10 MG CAPSULE PO SCH (08:33)
[2017-03-14] MEDS: TAMSULOSIN 0.4 MG CAPSULE PO SCH (08:33)
[2017-03-14] MEDS: ASPIRIN EC 81 MG TABLET PO SCH (08:33)
[2017-03-14] MEDS ORDERED: METOPROLOL TARTRATE 25 MG TABLET PO SCH (09:00)
[2017-03-14] MEDS: NYSTATIN POWDER 15 GM TOP SCH (12:18)
[2017-03-14] MEDS: ACETAMINOPHEN 500 MG TABLET PO PRN (13:48)
[2017-03-14 13:51] VITALS: BP 136/53
--- NOTE | 2017-03-14 14:06 | Discharge Plan ---
"Discharge Plan for SNF / LONG TERM - DC Plan and Transition Orders Disposition: 03 SNF DC/Xfer Condition: Fair SNF Transition Orders: Admit to: [facility] under the care of Rene Kaur Discharge Diagnosis: [1. Acute metabolic encephalopathy 2. Acute on chronic right heart failure 3. Acute on chronic renal insufficiency 4. Urinary tract infection 5. Diabetes 6. Dysphasia 7. Urinary retention 8. Hypertension] Medicare Certification: I certify that [facility] care is medically necessary on a continuing basis for any of the conditions for which she/he is receiving care during hospitalization. Notify PCP of admission and forward orders to primary provider for signature. Weight on admission and [Daily]. Call PCP immediately if weight increases by [5 ] pounds or if patient develops dyspnea, chest pain/tightness or edema. House Bowel Program: [Yes] If no BM after 2 days, nurse may give M.O.M. 30ml PO PRN and /or ducolax Supp 1 MD and /or HOLLY 250mg P.O., and/or senna 1-2 tabs PO. On day 3 nurse may give repeat above order until residents constipation is resolved. Immunizations: Annual Influenza Vaccine: [Yes]. (between Oct 16 and May 15.) Unless allergy or already given Two-Step PPD: [Yes] per [facility] [id number] or appropriate documentation of approved exceptions Treatments & Other Orders: [Wound care: Stasis ulcers: Recommended daily scrubbing of skin to remove peeling tissue and hydrating skin beneath tube gauze every shift. Change iodoform dressing every 2 days and as needed. Pressure injury: Change dressing every 3-4 days and as needed, extended bed to promote offloading, continue turning schedule and promote being OOB at least 3 times daily. Continue Mccarthy catheter until patient has been assessed by PCP or urologist. May need a trial of void in a few days currently patient is retaining urine. The patient has been started on Flomax. ] Oxygen Orders: [None] Lab Tests or X-Rays Orders: [None] Orthopedic Orders: None]. Medications: PLEASE REFER TO THE DISCHARGE MEDICATION LIST. Insulin Orders? [Yes] Diagnosis: Diabetes Initiate hypo and hyperglycemia protocols for BG <70 and BG >375. May check BG prn for signs/symptoms of dysglycemia. Frequency of BG checks: [AC/Meal/HS] Basal Insulin: [x] Lantus 100 units / ml inject subq as follows: [40 units subcutaneous every evening] [] Other: [] Correction Insulin: - Select the type of insulin below [Choose: Novolog/Humalog]100 units /ml insulin inject subq per orders indicate below [] LOW DOSE [x] MODERATE DOSE [] MODERATE/HIGH DOSE [] HIGH DOSE GB UNITS GB UNITS GB UNITS GB UNITS 61-140 0 UNITS 61-140 0 UNITS 61-140 0 UNITS 61-140 0 UNITS 141-175 1 UNITS 141-175 1 UNITS 141-175 2 UNITS 141-175 3 UNITS 176-225 2 UNITS 176-225 3 UNITS 176-225 4 UNITS 176-225 5 UNITS 226-275 3 UNITS 226-275 5 UNITS 226-275 6 UNITS 226-275 7 UNITS 276-325 4 UNITS 276-325 7 UNITS 276-325 8 UNITS 276-325 9 UNITS 326-375 5 UNITS 326-375 9 UNITS 326-375 10 UNITS 326-375 11 UNITS >375 CONTACT MD >375 CONTACT MD >375 CONTACT MD >375 CONTACT MD Custom Dosing: [Choose: None/Novolog/Humalog] 100 units/ml Insulin inject subq as follows: GB Units 61-140 [] Units 141-175 [] Units 176-225 [] Units 226-275 [] Units 276-325 []Units 326-375 [] Units >375 Contact MD Allergies and Adverse Reactions: Allergies Allergy/AdvReac Type Severity Reaction Status Date / Time No Known Drug Allergies Allergy Verified 03/02/17 19:15 - Diet Type: No added sugar Texture: Puree Liquids: Honey thick May have monthly special meal: Yes - Therapies | Activity Therapy: Evaluation | Treat if indicated: PT, Swallowing / ST Rehabilitation Potential: Maximize functional status Activity: Activity as Tolerated Weight Bearing: Full Weight Assistance Devices: Walker Follow Up: Patient will need daily physical therapy as he was profoundly weak from prolonged hospitalization. Patient's weights will need to be monitored daily. Patient appears to be at his dry weight which is 106.5 kg currently. If the patient's weight goes up by more than 5 pounds he will need to notify his primary care physician and increase his dose of diuretic. Patient is currently on a pured diet with honey thick liquids but should get a repeat swallow study to see if he can advance his diet. Patient has a Mccarthy catheter as he has been experiencing urinary retention he will need a trial of void in the next few days. Please continue wound care as above. Patient has completed his antibiotics."
[2017-03-14] MEDS ORDERED: PHENAZOPYRIDINE 100 MG TABLET PO SCH (15:00)
--- NOTE | 2017-03-14 15:59 | DISCHARGE SUMMARY ---
Discharge Summary Admit Date: 03/02/17 Discharge Date: 03/14/17 Discharging Provider: Kumar Kimball MD Primary Care Provider: Rene Kaur MD Code Status: Do Not Attempt Resuscitation Condition at Discharge: Fair Discharge Disposition: SNF DC/Xfer Discharge Facility Name: [facility] - DIAGNOSES Admission Diagnoses: 1. Generalized weakness 2. Anasarca 3. Chronic atrial fibrillation 4. Diabetes 5. Acute on chronic renal insufficiency Discharge Diagnoses with Status of Each Condition: 1. Acute metabolic encephalopathy: Improved 2. 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 Acute on chronic renal insufficiency: Stable 4. Urinary tract infection: Resolved 5. Diabetes: Stable 6. Dysphagia: Stable 7. Urinary retention: Stable 8. Hypertension: Stable - HPI History of Present Illness: Patient is an 82-year-old gentleman with a past medical history significant for right-sided heart failure, history of coronary artery disease status post CABG, permanent atrial fibrillation, diabetes, hypertension, COPD, spinal stenosis, obesity, GERD and recent hospitalization for anasarca and renal insufficiency. The patient was discharged from the hospital just 24 hours prior to readmission. The patient had been asking for home health for conditioning and strengthening with physical therapy prior to discharge however the patient finally agreed to go to a residential facility and was there for less than 24 hours before he left AGAINST MEDICAL ADVICE to go back home. At home the patient had increasing weakness and was unable to take care of himself. The patient lives with his elderly who is not able to care for him. The patient presented in the emergency department with a chief complaint of having fallen twice at home and having generalized weakness. The patient denied any syncope or dizziness or any head trauma. The patient was found to have increasing anasarca, acute on chronic renal failure and had generalized weakness for which he was admitted. - HOSPITAL COURSE Hospital Course: During the hospitalization the patient was initially started on aggressive diuresis due to his anasarca. The patient developed delirium and increasing confusion and was diagnosed with a urinary tract infection and started on Levaquin IV. Over the next several days the patient continued to be confused he was given a number of sedatives including Haldol, Ativan and morphine. The patient diuresed very well and had significant weight loss and improvement in his right-sided heart failure and anasarca. The patient was treated with IV Levaquin for 7 days to complete treatment for his UTI. The patient was very slow to recover from his metabolic encephalopathy which was felt to be secondary to his UTI as well as due to significant amount of sedative medications that the patient received over the course of the hospitalization. The patient also had significantly elevated levels of BUN which is concerning for possibility of uremia. Over several days the patient slowly recovered to his baseline mentation after all of his sedative medications were stopped. Once patient returned to his baseline mental status he was evaluated by physical therapy and was extremely weak and was recommended to go to [facility] for rehab. The patient was also found to have urinary retention and required a Mccarthy catheter even after the patient was started on Flomax and had a trial avoid the patient continued to have urinary retention therefore Mccarthy catheter was placed and patient was continued on Mccarthy catheter at discharge. Patient will need to follow-up with urology although we do recommend a trial of void in a few days to see if potentially this urinary retention has resolved as it may be due to the significant amount of sedative medication the patient received. The patient was also found to be having some aspiration with thin liquids. The patient was placed on a dysphagia pured diet with honey thickened liquids. Prior to discharge the patient failed a bedside swallow evaluation as he continued to cough with thin liquids. Patient will need further evaluation from speech therapy with another swallow evaluation in the next several days. The patient was sent to [facility] and will continue with physical therapy and speech therapy while he is there. The patient was discharged on his home medications but his Lantus was adjusted to 40 units subcutaneous daily. We also adjusted his torsemide to 80 mg daily. The patient had Flomax added to his regimen for urinary retention. The patient will need to follow-up with his primary care physician and urologist once he is well enough for discharge from [facility]. - ALLERGIES Allergies/Adverse Reactions: Allergies Allergy/AdvReac Type Severity Reaction Status Date / Time No Known Drug Allergies Allergy Verified 03/02/17 19:15 - MEDICATIONS Home Medications: Ambulatory Orders Medication Instructions Recorded Confirmed Omeprazole 20 mg PO QDAC 11/01/14 03/03/17 Aspirin [Aspir-Low] 81 mg PO DAILY 06/19/15 03/03/17 hydrALAZINE [Apresoline] 25 mg PO TID #0 03/01/17 03/03/17 Cetirizine [ZyrTEC] 10 mg PO DAILY PRN 03/03/17 03/03/17 Fluoxetine HCl 20 mg PO DAILY 03/03/17 03/03/17 Metoprolol Succinate 25 mg PO DAILY 03/03/17 03/03/17 Insulin Glargine [Lantus Solostar] 40 unit SUBQ QPM #0 03/14/17 03/03/17 Nystatin [Nystop] 1 applic TOP BID bottle 03/14/17 Phenazopyridine [Pyridium] 100 mg PO TIDWM tablet 03/14/17 Tamsulosin [Flomax] 0.4 mg PO DAILY capsule 03/14/17 Torsemide 60 mg PO DAILY #0 03/14/17 03/03/17 - PHYSICAL EXAM AT DISCHARGE General Appearance: positive: No acute distress, Alert, Other (Obese) Eyes Bilateral: positive: Normal inspection, PERRL, EOMI, No lid inflammation, Conjunctivae nml, No scleral icterus ENT: positive: ENT inspection nml, Pharynx nml, No signs of dehydration. negative: Purulent nasal drainage, Pharyngeal erythema, Oral lesions Neck: positive: Nml inspection, Thyroid nml, No JVD, Trachea midline. negative : Thyromegaly, Lymphadenopathy (R), Lymphadenopathy (L), Stiff neck, Carotid bruit, Tracheal deviation Respiratory: positive: Chest non-tender, No respiratory distress, Breath sounds nml. negative: Wheezes, Rales, Rhonchi Cardiovascular: positive: No murmur, No gallop, Irregularly irregular Peripheral Pulses: positive: 2+ Abdomen: positive: Non-tender, No organomegaly, Nml bowel sounds, No distention. negative: Guarding, Rebound, Hepatomegaly Back: positive: Nml inspection. negative: CVA tenderness (R), CVA tenderness (L ) Skin: positive: Dry. negative: Cyanosis, Pallor Extremities: positive: Non-tender, Full ROM, Nml appearance, Other (Trace lower extremity edema) Neurologic/Psychiatric: positive: Oriented x3, CN's nml (2-12), Motor nml, Sensation nml, Mood/affect nml - LABS Result Diagrams: 03/13/17 05:35 03/13/17 05:35 Other Lab Results: Laboratory Results WBC 9.9 x10^3/uL (4.8-10.8) 03/13/17 05:35 RBC 4.16 10^6/uL (4.70-6.10) L 03/13/17 05:35 Hgb 10.2 g/dL (14.0-18.0) L 03/13/17 05:35 Hct 33.3 % (42.0-52.0) L 03/13/17 05:35 MCV 80.1 fL (80.0-94.0) 03/13/17 05:35 MCH 24.6 pg (27.0-31.0) L 03/13/17 05:35 MCHC 30.7 g/dL (32.0-36.0) L 03/13/17 05:35 RDW 18.6 % (12.0-15.0) H 03/13/17 05:35 Plt Count 248 10^3/uL (130-450) 03/13/17 05:35 MPV 8.8 fL (7.4-11.4) 03/13/17 05:35 Neut # 6.8 10^3/uL (1.5-6.6) H 03/13/17 05:35 Lymph # 1.6 10^3/uL (1.5-3.5) 03/13/17 05:35 [place] # 1.0 10^3/uL (0.0-1.0) 03/13/17 05:35 Eos # 0.4 10^3/uL (0.0-0.7) 03/13/17 05:35 Baso # 0.1 10^3/uL (0.0-0.1) 03/13/17 05:35 Absolute Nucleated RBC 0.00 x10^3/uL 03/13/17 05:35 Total Counted 100 03/04/17 05:34 Band Neuts % (Manual) 10 % (0-10) 03/04/17 05:34 Abnorm Lymph % (Manual) 0 % 03/04/17 05:34 Nucleated RBC % 0.0 /100WBC 03/13/17 05:35 Neutrophils # (Manual) 23.9 10^3/uL (1.5-6.6) H 03/04/17 05:34 Lymphocytes # (Manual) 3.0 10^3/uL (1.5-3.5) 03/04/17 05:34 Monocytes # (Manual) 2.7 10^3/uL (0.0-1.0) H 03/04/17 05:34 Eosinophils # (Manual) 0.0 10^3/uL (0-0.7) 03/04/17 05:34 Basophils # (Manual) 0.0 10^3/uL (0-0.1) 03/04/17 05:34 Differential Comment MANUAL DIFFERENTIAL 03/04/17 05:34 Platelet Estimate NORMAL (130-450,000) (NORMAL) 03/04/17 05:34 RBC Morph Micro Appear NORMAL APPEARANCE (NORMAL) 03/04/17 05:34 VBG pH 7.399 (7.31-7.41) 03/04/17 05:34 VBG pCO2 31.2 mmHg (41-51) L 03/04/17 05:34 VBG pO2 218.9 mmHg (25-47) H 03/04/17 05:34 VBG HCO3 18.8 mmol/L (23-28) L 03/04/17 05:34 VBG Total CO2 19.8 mmol/L (24-29) L 03/04/17 05:34 VBG O2 Saturation 99.3 % (60-80) H 03/04/17 05:34 VBG Base Excess -5.0 mmol/L (-2 - +2) L 03/04/17 05:34 Sodium 138 mmol/L (135-145) 03/13/17 05:35 Potassium 3.8 mmol/L (3.5-5.0) 03/13/17 05:35 Chloride 103 mmol/L (101-111) 03/13/17 05:35 Carbon Dioxide 24 mmol/L (21-32) 03/13/17 05:35 Anion Gap 11.0 (6-13) 03/13/17 05:35 BUN 64 mg/dL (6-20) H 03/13/17 05:35 Creatinine 3.0 mg/dL (0.6-1.2) H 03/13/17 05:35 Estimated GFR (MDRD) 20 (>89) L 03/13/17 05:35 Glucose 108 mg/dL (70-100) H 03/13/17 05:35 POC Whole Bld Glucose 219 mg/dL (70 - 100) H 03/14/17 11:30 Glycated Hemoglobin 9.1 % (4.6-6.2) H 03/02/17 20:12 Estim Average Glucose 214 (70-100) H 03/02/17 20:12 Calcium 8.5 mg/dL (8.5-10.3) 03/13/17 05:35 Ionized Calcium NO 03/13/17 05:35 Phosphorus 3.7 mg/dL (2.5-4.6) 03/06/17 06:16 Magnesium 1.8 mg/dL (1.7-2.8) 03/13/17 05:35 Total Bilirubin 1.3 mg/dL (0.2-1.0) H 03/13/17 05:35 AST 24 IU/L (10-42) 03/13/17 05:35 ALT 67 IU/L (10-60) H 03/13/17 05:35 Alkaline Phosphatase 92 IU/L (42-121) 03/13/17 05:35 Ammonia 12.0 umol/L (7-35) 03/10/17 08:20 B-Natriuretic Peptide 932 pg/mL (5-100) H 03/13/17 05:35 Total Protein 6.4 g/dL (6.7-8.2) L 03/13/17 05:35 Albumin 2.7 g/dL (3.2-5.5) L 03/13/17 05:35 Globulin 3.7 g/dL (2.1-4.2) 03/13/17 05:35 Albumin/Globulin Ratio 0.7 (1.0-2.2) L 03/13/17 05:35 Lipase 14 U/L (22-51) L 03/02/17 20:12 Vitamin B12 818 pg/mL (180-914) 03/10/17 08:20 Folate 12.50 ng/mL (5.90 - >24.8) 03/10/17 08:20 TSH 2.14 uIU/mL (0.34-5.60) 03/10/17 08:20 Urine Color YELLOW 03/11/17 18:50 Urine Clarity HAZY (CLEAR) 03/11/17 18:50 Urine pH 6.5 PH (5.0-7.5) 03/11/17 18:50 Ur Specific [place] 1.010 (1.002-1.030) 03/11/17 18:50 Urine Protein 30 mg/dL (NEGATIVE) H 03/11/17 18:50 Urine Glucose (UA) NEGATIVE mg/dL (NEGATIVE) 03/11/17 18:50 Urine Ketones NEGATIVE mg/dL (NEGATIVE) 03/11/17 18:50 Urine Occult Blood LARGE (NEGATIVE) H 03/11/17 18:50 Urine Nitrite NEGATIVE (NEGATIVE) 03/11/17 18:50 Urine Bilirubin NEGATIVE (NEGATIVE) 03/11/17 18:50 Urine Urobilinogen 1 (NORMAL) E.U./dL (NORMAL) 03/11/17 18:50 Ur Leukocyte Esterase MODERATE (NEGATIVE) H 03/11/17 18:50 Urine RBC 11-25 /HPF (0-5) H 03/11/17 18:50 Urine WBC >25 /HPF (0-3) H 03/11/17 18:50 Urine WBC Clumps PRESENT 03/11/17 18:50 Ur Squamous Epith Cells RARE Squamous (<= Few) 03/11/17 18:50 Urine Bacteria Few /HPF (None Seen) 03/11/17 18:50 Urine Mucus Few Strands 03/11/17 18:50 Ur Microscopic Review INDICATED 03/11/17 18:50 Urine Culture Comments INDICATED 03/11/17 18:50 T.pallidum IgG (EIA) NEGATIVE 03/10/17 08:20 - DIAGNOSTIC IMAGING Diagnostic Imaging Results: Final report reviewed Diagnostic Imaging Results Comments: EXAM: [id number] CT/HEADWO ([id number]) DATE OF SERVICE: 03/10/2017 CT BRAIN WITHOUT CONTRAST: 03/10/2017 CLINICAL INDICATION: Altered mental status. COMPARISON: 03/02/2017, 02/26/2017 TECHNIQUE: Axial CT images of the brain were obtained without intravenous contrast. FINDINGS: The ventricles and sulci again demonstrate symmetric enlargement, compatible with atrophy. Chronic ischemic changes in the periventricular white matter structures are stable. There is no evidence of intracranial hemorrhage, mass effect, or midline shift. The basilar cisterns are patent. There is new sphenoid sinus mucosal thickening. The visualized orbital contents are unremarkable. IMPRESSION: STABLE ATROPHY. NO EVIDENCE OF HEMORRHAGE OR MASS EFFECT. NEW SPHENOID SINUS DISEASE. CHEST RADIOGRAPHY EXAM DATE: 03/03/2017 10:24 PM. CLINICAL HISTORY: Shortness of breath COMPARISON: 02/25/2017, 02/21/2017 TECHNIQUE: 1 view. FINDINGS: Lungs/Pleura: Small lung volumes. Diffuse pulmonary vascular congestion and septal thickening. Suspected trace pleural effusions. No definite pneumothorax. Mediastinum: Moderate enlargement of the cardiac silhouette. Other: Prior median sternotomy. IMPRESSION: Moderate CHF pattern. CT FACIAL BONES WITHOUT CONTRAST: 03/02/2017 CLINICAL INDICATION: Fall TECHNIQUE: Axial CT images of the facial bones were obtained without contrast, following which, sagittal and coronal reconstructions were performed. In accordance with CT protocol optimization, one or more of the following dose reduction techniques were utilized for this exam: Automated exposure control, adjustment of mA and/or KV based on patient size, or use of iterative reconstructive technique. FINDINGS: Image quality is degraded by patient motion. There is no evidence of displaced fracture. The visualized orbital contents are unremarkable. The paranasal sinuses are clear. The ostiomeatal units are patent. There are degenerative changes in the temporomandibular joints, left worse than right. IMPRESSION: No evidence of facial bone fracture. CT HEAD EXAM DATE: 03/02/2017 09:02 PM. CLINICAL HISTORY: Facial pain, fall. COMPARISON: Brain CT from 02/26/2017. TECHNIQUE: Multiaxial CT images were obtained from the foramen magnum to the vertex. Reformats: Coronal. IV contrast: None. In accordance with CT protocol optimization, one or more of the following dose reduction techniques were utilized for this exam: automated exposure control, adjustment of mA and/or KV based on patient size, or use of iterative reconstructive technique. FINDINGS: Parenchyma: No intraparenchymal hemorrhage. No evidence of mass, midline shift, or CT findings of acute infarction. Nixon-white differentiation is distinct. No diffuse chronic microangiopathic white matter changes are evident. Extraaxial Spaces: Normal for age. No subdural or epidural collections identified. Ventricles: The ventricles and cortical sulci are moderately enlarged, consistent with age-related tissue loss. Sinuses and orbits: Postsurgical changes from cataract extractions are noted in the globes. The paranasal and mastoid sinuses are nonopacified. Bones: No evidence of fracture or calvarial defect. Other: Mild intracranial atherosclerosis is noted. IMPRESSION: Generalized age-related cortical atrophic changes without evidence of acute intracranial abnormality. - FOLLOW UP Follow Up: Patient will be discharged to [facility] and will follow up with physical therapy and speech therapy while at [facility]. Patient is being discharged with a Mccarthy catheter for urinary retention. Patient will need to follow-up with urology if he does not pass trial of void while at [facility]. - TIME SPENT Time Spent in Discharge (Minutes): 45
== END 2017-03-14 15:15 | DRG 291 ==
LOC: EDUNIT# → ED 19:08 → OBS 22:30 → MS2 03-03 14:29 → OBSVTOIN 03-03 15:16
PROVIDERS: ADMIT Internal Medicine; ATTEND Internal Medicine
DX: R53.1 Weakness (principal); I13.0 Hypertensive heart and chronic kidney disease with heart failure and stage 1 through stage 4 chronic kidney disease, or unspecified chronic kidney disease; I50.33 Acute on chronic diastolic (congestive) heart failure; G92 Toxic encephalopathy; E87.5 Hyperkalemia; E11.22 Type 2 diabetes mellitus with diabetic chronic kidney disease; E11.42 Type 2 diabetes mellitus with diabetic polyneuropathy; E87.1 Hypo-osmolality and hyponatremia; N39.0 Urinary tract infection, site not specified; N17.9 Acute kidney failure, unspecified; F32.9 Major depressive disorder, single episode, unspecified; F05 Delirium due to known physiological condition; E10.9 Type 1 diabetes mellitus without complications; T42.4X5A Adverse effect of benzodiazepines, initial encounter; Z95.5 Presence of coronary angioplasty implant and graft; T43.4X5A Adverse effect of butyrophenone and thiothixene neuroleptics, initial encounter; T40.2X5A Adverse effect of other opioids, initial encounter; Y92.230 Patient room in hospital as the place of occurrence of the external cause; B96.20 Unspecified Escherichia coli [E. coli] as the cause of diseases classified elsewhere; N18.9 Chronic kidney disease, unspecified; Z87.891 Personal history of nicotine dependence; E86.0 Dehydration; R13.10 Dysphagia, unspecified; R33.9 Retention of urine, unspecified; I48.2 Chronic atrial fibrillation; I25.10 Atherosclerotic heart disease of native coronary artery without angina pectoris; J44.9 Chronic obstructive pulmonary disease, unspecified; E66.9 Obesity, unspecified; K21.9 Gastro-esophageal reflux disease without esophagitis; Z66 Do not resuscitate; Z68.32 Body mass index [BMI] 32.0-32.9, adult; Z79.4 Long term (current) use of insulin; Z95.1 Presence of aortocoronary bypass graft; Z91.81 History of falling; Z79.82 Long term (current) use of aspirin
CPT/HCPCS: 36415; 51701; 70450; 70486; 71045; 80048; 80053; 81001; 81003; 82140; 82607; 82746; 82803; 83036; 83690; 83735; 83880; 84100; 84443; 85025; 86780; 87086; 93005; 96374; 96375; 99284

== ENCOUNTER 2017-03-19 16:30 | Outpatient (CLI) | payer MEDICARE, OTHER ==
[2017-03-19 18:33] LABS: CALCIUM 8.4 mg/dL (8.5-10.3); CREATININE 3.1 mg/dL (0.6-1.2)
== END 2017-03-19 16:31 | disposition home or self-care (01) ==
LOC: LAB.R 16:30
DX: I10 Essential (primary) hypertension (principal)
CPT/HCPCS: 80048